=== PATIENT | female | born 1975 | race Caucasian/White ===

== ENCOUNTER 2020-07-11 10:53 | Emergency (ER) | payer OTHER, SELFPAY ==
[2020-07-11 11:27] VITALS: BP 155/70; PULSE 70; RESP 18; TEMP 36.8; O2SAT 97; BMI 30.2
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
[2020-07-11] MEDS: ketorolac 60 mg/2 mL INJ IM (12:45)
[2020-07-11] MEDS: orphenadrine 30 mg/mL Inj 2 mL 60 MG IM (12:45)
[2020-07-11 13:27] VITALS: BP 162/87; O2SAT 98
== END 2020-07-11 13:30 | disposition home or self-care (01) ==
PROVIDERS: Emergency Provider Physician Assistant; PCP Registered Nurse
DX: S13.4XXA Sprain of ligaments of cervical spine, initial encounter (principal); V89.2XXA Person injured in unspecified motor-vehicle accident, traffic, initial encounter
CPT/HCPCS: 12345; 70450; 72125; 73030; 73562; 96372; 99281; 99283; J1885; J2360

== ENCOUNTER 2021-06-10 18:47 | Emergency (ER) | payer SELFPAY ==
--- NOTE | 2021-06-10 18:49 | ECG_ITS ---
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
--- NOTE | 2021-06-10 18:49 | XRR_ITS ---
PROCEDURE INFORMATION: Exam: XR Chest Exam date and time: 06/10/2021 6:49 PM Age: 45 years old Clinical indication: Shortness of breath; Prior surgery; Surgery type: Breast augmentation; Patient HX: SOB, dizziness; Additional info: Cp TECHNIQUE: Imaging protocol: XR of the chest. Views: 1 view. COMPARISON: CT cervical spin wo con* [id number] 07/11/2020 12:49 PM FINDINGS: Lungs: Unremarkable. No consolidation. Pleural spaces: Unremarkable. No pleural effusion. No pneumothorax. Heart/Mediastinum: Unremarkable. No cardiomegaly. Bones/joints: Unremarkable. XR/XR chest 1V portable [id number] IMPRESSION: No acute findings. Radiation Dose CTDIVOL = (mGy): DLP = (mGy-cm)
[2021-06-10 19:07] VITALS: BP 165/87; PULSE 76; RESP 16; TEMP 36.7; O2SAT 100; BMI 25.8
== END 2021-06-10 21:25 | disposition left against medical advice (07) ==
PROVIDERS: PCP Registered Nurse
DX: Z53.21 Procedure and treatment not carried out due to patient leaving prior to being seen by health care provider (principal)
CPT/HCPCS: 71045; 93005

== ENCOUNTER 2021-09-07 11:23 | Observation (INO) | payer OTHER, SELFPAY ==
[2021-09-07] VITALS (12 sets, daily range): BP systolic 106–142; BP diastolic 61–98; PULSE 57–95; RESP 16–22; TEMP 36.9–37.1; O2SAT 98–100; BMI 25.8
--- NOTE | 2021-09-07 11:51 | XRR_ITS ---
PROCEDURE INFORMATION: Exam: XR Chest Exam date and time: 09/07/2021 11:51 AM Age: 45 years old Clinical indication: Pain; Chest pressure; Additional info: Chest pain, shield abd TECHNIQUE: Imaging protocol: XR of the chest. Views: 1 view. COMPARISON: CR XR chest 1V portable [id number] 06/10/2021 7:55 PM FINDINGS: Lungs: Unremarkable. No consolidation. Pleural spaces: Unremarkable. No pleural effusion. No pneumothorax. Heart/Mediastinum: Unremarkable. No cardiomegaly. Bones/joints: Unremarkable. XR/XR chest 1V portable [id number] IMPRESSION: No acute findings.
--- NOTE | 2021-09-07 11:53 | W.ED.CHESTPA ---
HPI - Chest Pain General: Chief Complaint: Chest Pain Stated Complaint: Chest Pains, Weakness, and lightheaded Time Seen by Provider: 09/07/21 11:46 Source: patient Mode of arrival: ambulatory Limitations: no limitations History of Present Illness: HPI narrative: Chest pain intermittently for the past week. She has also had fatigue. Complain of minimal shortness of breath also. Patient states her mother had a heart attack at 38 years of age. Patient denies tobacco use. Only medication that she takes is Xanax as needed for sleep. She denies history of diabetes or hypertension. She has had gastric bypass surgery about 6 years ago. MD complaint: chest pain Pertinent past history: other (Family history of coronary disease) Timing of current episode: episodic and now resolved Prior episodes: Yes Onset: during rest Pain location: substernal and left chest Pain radiation: none Severity: mild Quality: aching Relieving factors: nothing Exacerbating factors: nothing Associated symptoms: Reports dyspnea (mild); Deny abdominal pain, diaphoresis, fever(s), leg edema, nausea, palpitations, sense of impending doom, syncope or vomiting Treatment prior to arrival: none Risk Factors: Coronary artery disease risk factors: family history of CAD before age 50 Review of Systems Const: Reports: fatigue and malaise; Denies: fever(s), chills or diaphoresis Eyes: Denies: change in vision ENMT: Denies: throat pain Card: Reports: chest pain; Denies: palpitations or syncope Resp: Reports: dyspnea (mild) GI: Denies: abdominal pain, nausea or vomiting : Denies: flank pain Musc: Denies: neck pain or back pain Skin/Breast: Denies: rash or pruritus Neuro: Denies: headache(s) or numbness in extremities Psych: Denies: anxiety Dante/Lymph: Denies: enlarged lymph nodes Physical Exam Const: COMMON NORMALS: no acute distress, patient oriented x3, no limitations and well nourished EXAM LIMITATIONS: no altered mental status GENERAL APPEARANCE: cooperative and comfortable HENMT: COMMON NORMALS: normocephalic and atraumatic HEAD & SCALP: normocephalic and atraumatic FACE & SINUS: normal facial exam Eye: COMMON NORMALS: EOMs intact bilaterally Neck/C-Spine: COMMON NORMALS: full ROM, no lymphadenopathy, supple, no meningeal signs and no JVD GENERAL: Yes normal visual inspection Lymph: LYMPHATIC: no lymphadenopathy noted Chest: COMMONS NORMALS: normal inspection of the chest and normal palpation of entire chest wall CHEST: No Ecchymosis present and No rash Resp: COMMON NORMALS: normal respiratory effort, No retractions, No use of accessory muscles and clear to auscultation bilaterally EFFORT & INSPECTION: No respiratory distress AUSCULTATION: clear to auscultation bilaterally Cardio: COMMON NORMALS: no JVD, regular rate, regular rhythm and Peripheral pulses 2+ throughout JUGULAR VENOUS DISTENTION: no JVD RATE: regular rate RHYTHM: regular rhythm PERIPHERAL PULSES: Peripheral pulses 2+ throughout GI: COMMON NORMALS: Normal to inspection, nondistended, normoactive bowel sounds present, Soft to palpation, non-tender, No hepatosplenomegaly present, no masses and no bruits PALPATION: Yes Soft to palpation and Yes No hepatosplenomegaly present : COMMON NORMALS: Yes no CVA tenderness BLADDER/KIDNEY EXAM: Yes no CVA tenderness Back/Pelvis: COMMON NORMALS: no CVA tenderness Extremity: COMMON NORMALS: normal to inspection, full ROM and capillary refill normal Neuro: COMMON NORMALS: patient oriented x3, CN's II-XII intact bilaterally, no focal motor deficits and no sensory deficits noted MENINGEAL SIGNS: Yes no meningeal signs Psych: COMMON NORMALS: mental status grossly normal and Normal thought process present THOUGHT PROCESS: Normal thought process present Skin: COMMON NORMALS: no rashes or lesions noted and no wounds GENERAL SKIN EXAM: no rashes or lesions noted Course Vital Signs: Vital signs: Vital Signs Temperature 98.4 F 09/07/21 11:40 Pulse Rate 68 09/07/21 13:21 Respiratory Rate 22 H 09/07/21 13:21 Blood Pressure 136/70 09/07/21 13:21 Pulse Oximetry 100 09/07/21 13:21 MDM - Chest Pain MDM Narrative: Medical decision making narrative: 1325: d/w dr. dasilva cardiology. will obs to med telem. order lovenox. Patient has taken Lovenox in the past without any problems. Lab Data: Attestation: I reviewed the patient's lab results. Labs: Lab Results 09/07/21 09/07/21 09/07/21 12:15 12:15 12:15 WBC 5.1 10^3/uL 10^3/ uL (4.0-10.0) RBC 4.08 10^6/uL L 10 ^6/uL (4.1-5.3) Hgb 13.2 g/dL g/dL (11.5-15.3) Hct 40.7 % % (37.0-47.0) MCV 99.8 fl H fl (81-99) MCH 32.4 pg pg (28.0-34.0) MCHC 32.4 g/dL g/dL (30.0-36.0) RDW 12.3 % % (12.1-15.1) Plt Count 407 10^3/cmm H 10 ^3/cmm (130-400) MPV 9.3 fL fL (7.4-10.4) Neut % (Auto) 52.7 % % Lymph % (Auto) 24.5 % % Beaver % (Auto) 10.1 % % Eos % (Auto) 11.1 % % Baso % (Auto) 1.2 % % Neut # (Auto) 2.71 10^3/uL 10^3 /uL (1.8-7.7) Lymph # (Auto) 1.3 10^3/uL 10^3/ uL (0.8-4.8) Beaver # (Auto) 0.5 10^3/uL 10^3/ uL (0.2-0.9) Eos # (Auto) 0.6 10^3/uL 10^3/ uL (0.0-0.8) Baso # (Auto) 0.1 10^3/uL 10^3/ uL (0.0-0.1) Nucleated RBC % (a uto) 0 % % Nucleated RBCs # 0.0 /100WBC /100W BC D-Dimer Sodium 139 mmol/L mmol/L (136-145) Potassium 3.8 mmol/L mmol/L (3.5-5.1) Chloride 106 mmol/L mmol/L (98-107) Carbon Dioxide 19 mmol/L L mmol/ L (22-29) Anion Gap 17.8 (5-19) BUN 12 mg/dL mg/dL (6-20) Creatinine 0.6 mg/dL mg/dL (0.5-0.9) GFR Calculation 109.1 mL/min mL/m in (90-130) Glucose 78 mg/dL mg/dL (65-115) Calculated Osmolal ity 287 mOsm/kg mOsm/ kg (285-295) Calcium 8.8 mg/dL mg/dL (8.5-10.5) Troponin T Baselin e 6 ng/L ng/L (0-10) TSH 0.70 uIU/mL uIU/m L (0.27-4.20) 09/07/21 12:20 WBC RBC Hgb Hct MCV MCH MCHC RDW Plt Count MPV Neut % (Auto) Lymph % (Auto) Beaver % (Auto) Eos % (Auto) Baso % (Auto) Neut # (Auto) Lymph # (Auto) [place] # (Auto) Eos # (Auto) Baso # (Auto) Nucleated RBC % (a uto) Nucleated RBCs # D-Dimer 0.45 ug/mIFEU ug/ mIFEU (0-0.59) Sodium Potassium Chloride Carbon Dioxide Anion Gap BUN Creatinine GFR Calculation Glucose Calculated Osmolal ity Calcium Troponin T Baselin e TSH Imaging Data^: CXR: Attestation: I personally reviewed and interpreted this imaging study as follows: My impression: Portable chest x-ray shows nothing acute. EKG Data^: EKG 1: Attestation: I personally reviewed and interpreted this EKG as follows: EKG interpretation date: 09/07/21 EKG interpretation time: 11:55 Prior EKG tracings: available for review Ischemic changes: non-specific ST-T wave changes Interpretation: Normal sinus rhythm with nonspecific ST-T changes throughout. Right atrial disease. Nonspecific ST changes are changed from normal EKG on June 10, 2021. Discharge Plan Discharge Patient Disposition: Placed in Observation Clinical Impression: Chest pain Qualifiers: Chest pain type: unspecified Qualified Code(s): R07.9 - Chest pain, unspecified Coding Level of Care Code ED [place] for [facility] Fwd Exam Comprehensive
[2021-09-07 12:24] LABS: Basophils # 0.1 10^3/uL (0.0-0.1); Basophils % 1.2 %; Eosinophils # 0.6 10^3/uL (0.0-0.8); Eosinophils % 11.1 %; Hematocrit 40.7 % (37.0-47.0); Hemoglobin 13.2 g/dL (11.5-15.3); Lymphocytes # 1.3 10^3/uL (0.8-4.8); Lymphocytes % 24.5 %; Mean Corpuscular HGB Conc 32.4 g/dL (30.0-36.0); Mean Corpuscular Hemoglobin 32.4 pg (28.0-34.0); Mean Corpuscular Volume 99.8 fl (81-99); Mean Platelet Volume 9.3 fL (7.4-10.4); Monocytes # 0.5 10^3/uL (0.2-0.9); Monocytes % 10.1 %; Neutrophils # 2.71 10^3/uL (1.8-7.7); Neutrophils % 52.7 %; Nucleated Red Blood Cells % 0 %; Platelet Count 407 10^3/cmm (130-400); Red Blood Count 4.08 10^6/uL (4.1-5.3); Red Cell Distribution Width 12.3 % (12.1-15.1); White Blood Count 5.1 10^3/uL (4.0-10.0)
[2021-09-07 12:43] LABS: Troponin(5th) Baseline 6 ng/L (0-10)
[2021-09-07 12:45] LABS: D Dimer 0.45 ug/mIFEU (0-0.59)
[2021-09-07 12:51] LABS: Anion Gap 17.8 (5-19); Blood Urea Nitrogen 12 mg/dL (6-20); Calcium 8.8 mg/dL (8.5-10.5); Carbon Dioxide 19 mmol/L (22-29); Chloride 106 mmol/L (98-107); Glomerular Filtration Rate 109.1 mL/min (90-130); Glucose 78 mg/dL (65-115); Osmolality Calculated 287 mOsm/kg (285-295); Potassium 3.8 mmol/L (3.5-5.1); Sodium 139 mmol/L (136-145)
[2021-09-07] MEDS: enoxaparin 80 mg/0.8 mL Syringe 70 MG SUBCUT (13:36)
[2021-09-07] MEDS: ondansetron 2 mg/ML SDV 2 mL 4 MG IVP (13:41)
[2021-09-07] MEDS: morphine 4 mg/mL SDV 1 mL 2 MG IVP ×2 (13:41→19:13)
[2021-09-07 14:42] LABS: Troponin 5 2HR 10.66 ng/L (0-10); Troponin 5 2HR Delta 4.66 ABS# (0-10)
[2021-09-07] MEDS: isosorbide mononitrate 20 mg Tablet PO (17:27)
[2021-09-07 18:15] LABS: Troponin 5 6HR 9.13 ng/L (0-10); Troponin 5 6HR Delta 3.13 ng/L (0-12)
--- NOTE | 2021-09-07 18:46 | PM.HP ---
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 According to the patient it has awakened her up from the sleep as well. Today it felt like somebody sitting on her chest and sometimes it is sharp and shooting. She decided to come to the ER. Upon arrival she had EKG done which showed ST changes I do not see it here recorded but was presented to me in the ER. According to patient she is feeling little bit better but still has residual chest pressure. She will be admitted to rule out for acute coronary syndrome. Further plan will advise then. Review of Systems Const: Reports: fatigue and malaise; Denies: fever(s), chills or diaphoresis Eyes: Denies: change in vision ENMT: Denies: throat pain Card: Reports: chest pain; Denies: palpitations or syncope Resp: Reports: dyspnea (mild) GI: Denies: abdominal pain, nausea or vomiting : Denies: flank pain Musc: Denies: neck pain or back pain Skin/Breast: Denies: rash or pruritus Neuro: Denies: headache(s) or numbness in extremities Psych: Denies: anxiety Dante/Lymph: Denies: enlarged lymph nodes Medications/Allergies Home Medications Medication Instructions Recorded Confirmed Last Taken Type alprazolam 0.5 mg PO BID PRN 07/11/20 09/07/21 07/11/20 History cetirizine [Zyrtec] 10 mg PO DAILY PRN 07/11/20 09/07/21 Unknown History fexofenadine 180 mg PO DAILY PRN 07/11/20 09/07/21 07/11/20 History montelukast 10 mg PO QPM PRN 07/11/20 09/07/21 07/10/20 History pantoprazole 40 mg PO DAILY #30 tab 09/09/21 Unknown Rx Allergies Allergy/AdvReac Type Severity Reaction Status Date / Time Beef Containing Products Allergy ALGY-Swell Verified 09/07/21 11:43 Lip/Tongue/Throat pork derived (porcine) Allergy ALGY-Swell Verified 09/07/21 11:43 Lip/Tongue/Throat PFSH Acute PFSH: Surgical History (Updated 09/10/21 @ 00:00 by ) Gastric bypass status for obesity Vitals/I&O/Wt Last Vital Signs Temp 98.4 F 09/07/21 11:40 Pulse 94 09/07/21 16:58 Resp 18 09/07/21 16:27 BP 130/82 09/07/21 16:58 Pulse Ox 99 09/07/21 16:58 09/07/21 09/07/21 09/07/21 06:59 14:59 22:59 Intake Total 360 / 360 Balance 360 / 360 Weight last 48 hrs Weight 160 lb Weight 160 lb Physical Exam Narrative: EXAM NARRATIVE: GENERAL: Patient is alert, awake and oriented x3. NECK: No jugular vein distension. HEENT: No cyanosis. No icterus. No pallor. HEART: Regular S1 and S2. No murmur, rub or gallop. LUNGS: Clear to auscultate bilaterally. ABDOMEN: Soft, nontender and nondistended. Positive bowel sounds. No guarding, rebound or tenderness. CENTRAL NERVOUS SYSTEM: Grossly nonfocal. EXTREMITIES: Lower extremities without edema bilaterally. Data : 09/08/21 04:31 09/08/21 04:31 A&P Assessment and plan (1) Chest pain: We will rule out acute coronary syndrome she will be admitted on tele floor. I will give her Lovenox start her on aspirin statin and nitroglycerin. I will also start her on beta-cj. Further plan be advised as per progress of the patient Status: Resolved Qualifiers: Chest pain type: unspecified Qualified Code(s): R07.9 - Chest pain, unspecified (2) Gastric bypass status for obesity: History of gastric bypass surgery. 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
[2021-09-07] MEDS: metoprolol succinate ER (24 HR) 25 mg Tablet 12.5 MG PO (19:13)
[2021-09-07] MEDS: atorvastatin 40 mg Tablet PO (19:14)
[2021-09-07] MEDS: pantoprazole DR 40 mg Tablet PO (19:14)
[2021-09-07] MEDS: ketorolac 30 mg/mL INJ 15 MG IVP (20:56)
[2021-09-07] MEDS: HYDROcodone-acetaminophen 5-325 mg Tablet 1 TAB PO (21:44)
[2021-09-08] VITALS (12 sets, daily range): BP systolic 105–133; BP diastolic 62–78; PULSE 52–63; RESP 16–20; TEMP 36.5–37; O2SAT 95–99
[2021-09-08] MEDS: morphine 4 mg/mL SDV 1 mL 2 MG IVP ×4 (03:28→21:54)
[2021-09-08] MEDS: HYDROcodone-acetaminophen 5-325 mg Tablet 1 TAB PO ×4 (03:55→21:51)
[2021-09-08 05:16] LABS: Basophils % 0.5 %; Eosinophils # 0.6 10^3/uL (0.0-0.8); Eosinophils % 11.2 %; Hematocrit 38.6 % (37.0-47.0); Hemoglobin 12.2 g/dL (11.5-15.3); Lymphocytes # 1.9 10^3/uL (0.8-4.8); Lymphocytes % 33.5 %; Mean Corpuscular HGB Conc 31.6 g/dL (30.0-36.0); Mean Corpuscular Hemoglobin 32.4 pg (28.0-34.0); Mean Corpuscular Volume 102.4 fl (81-99); Mean Platelet Volume 9.4 fL (7.4-10.4); Monocytes # 0.6 10^3/uL (0.2-0.9); Monocytes % 10.5 %; Neutrophils # 2.42 10^3/uL (1.8-7.7); Neutrophils % 43.9 %; Nucleated Red Blood Cells % 0 %; Platelet Count 342 10^3/cmm (130-400); Red Blood Count 3.77 10^6/uL (4.1-5.3); Red Cell Distribution Width 12.5 % (12.1-15.1); White Blood Count 5.5 10^3/uL (4.0-10.0)
[2021-09-08 05:38] LABS: Anion Gap 17.5 (5-19); Blood Urea Nitrogen 13 mg/dL (6-20); Calcium 8.8 mg/dL (8.5-10.5); Carbon Dioxide 21 mmol/L (22-29); Chloride 105 mmol/L (98-107); Creatinine Clr Calc Pharmacy 92.4843; Glomerular Filtration Rate 78.3 mL/min (90-130); Glucose 99 mg/dL (65-115); Osmolality Calculated 288 mOsm/kg (285-295); Potassium 4.5 mmol/L (3.5-5.1); Sodium 139 mmol/L (136-145)
--- NOTE | 2021-09-08 06:24 | PC.NURSE ---
SHIFT SUMMARY Has not really slept tonight. Has been on computer or phone much of the shift. Has continued to voice some chest pain. Says is in center of chest and into back but says is not any different than what she has been dealing with for some time now. No SOB, diaphoresis or radiation into neck or arms. Has also had a headache all night. Has received IV Morphine, po Hydrocodone and a 1 time dose of IV Toradol. Is very pleasant and talkative. Is anxious to find out what is causing her chest pain. equipment monitor phototypesetting showing SR-SB with HR in 50's-60's range
[2021-09-08] MEDS: aspirin 325 mg Tablet PO (08:38)
[2021-09-08] MEDS: pantoprazole DR 40 mg Tablet PO (08:38)
[2021-09-08] MEDS: metoprolol succinate ER (24 HR) 25 mg Tablet 12.5 MG PO (08:38)
--- NOTE | 2021-09-08 11:03 | USCV_ITS ---
Thao Refugio Age: 45 Gender: F : 1975 Exam Date: 09/08/2021 12:32 Ordering Phys: Lynnette Nieves MD ([email or web address]) Technologist: Kandi Sneed [place] [facility] [place]: Chest pain BP: 114 / 68 HR: 58 Rhythm: Sinus Technical Quality: Fair MEASUREMENTS (Male / Female) Normal Values 2D ECHO LV Diastolic Diameter PLAX 3.7 cm 4.2 - 5.9 / 3.9 - 5.3 cm LV Systolic Diameter PLAX 2.1 cm IVS Diastolic Thickness 1.1 cm 0.6 - 1.0 / 0.6 - 0.9 cm IVS Systolic Thickness 1.7 cm LVPW Diastolic Thickness 0.9 cm 0.6 - 1.0 / 0.6 - 0.9 cm LVPW Systolic Thickness 1.5 cm RV Chamber Size 2.2 cm LVOT Diameter 1.8 cm LV Ejection Fraction 2D Teich 75.7 % LV Ejection Fraction MOD 2C 63.0 % LV Ejection Fraction 2C AL 64.2 % LA Diameter 2.3 cm LA Width 2.6 cm LA Height 3.4 cm RA Width 2.9 cm RA Height 3.5 cm Aorta at Sinotubular Diameter 2.0 cm M-MODE Aortic Annulus Diameter 2.3 cm LA Ao Ratio MM 1.3 MV E Point Septal Separation 0.3 cm DOPPLER AV Peak Velocity 190.0 cm/s LVOT Peak Velocity 120.0 cm/s AV Area Cont Eq vti 1.8 cm squared AV Area Cont Eq pk 1.6 cm squared MV Area PHT 4.3 cm squared Mitral E to A Ratio 1.2 MV E' Velocity 57.0 cm/s Mitral E to MV E' Ratio 7.5 Mitral E to LV E' Lateral Ratio 6.9 Mitral E to LV E' Septal Ratio 8.3 TR Peak Velocity 261.3 cm/s TR Peak Gradient 27.3 mmHg TV Peak E Velocity 73.0 cm/s Right Atrial Pressure 3.0 mmHg Pulmonary Artery Systolic Pressu 30.3 mmHg RV Acceleration Time 0.2 s RV Ejection Time 0.3 s RV AcT/ET 0.5 FINDINGS Left Ventricle Normal left ventricular cavity size. Normal left ventricular systolic function. No regional wall motion abnormalities. Left ventricular ejection fraction is estimated at 65 %. Normal diastolic function. Right Ventricle Normal right ventricular size. Moderate pulmonary hypertension, RVSP 30.3 mmHg plus RA pressure Right Atrium The right atrium is normal in size. Left Atrium The left atrium is normal in size. Mitral Valve Mildly thickened mitral valve. No mitral valve stenosis. Mild mitral valve regurgitation. Aortic Valve Moderate aortic valve calcification. No aortic valve stenosis. Trace aortic valve regurgitation. Tricuspid Valve Moderate tricuspid valve regurgitation. Pulmonic Valve Structurally normal pulmonic valve without significant stenosis. There is no pulmonic regurgitation. Pericardium Normal pericardium without effusion. Aorta Normal ascending aorta dimension. CONCLUSIONS 1-Normal left ventricular cavity size. Normal left ventricular systolic function. No regional wall motion abnormalities. Left ventricular ejection fraction is estimated at 65 %. Normal diastolic function. 2-Normal right ventricular size. Moderate pulmonary hypertension, RVSP 30.3 mmHg. 3-Moderate aortic valve calcification. No aortic valve stenosis. Trace aortic valve regurgitation. 4-Mildly thickened mitral valve. No mitral valve stenosis. Mild mitral valve regurgitation. 5-Moderate tricuspid valve regurgitation. 6-There is no pericardial effusion. 7-Right atrial pressure is around 10 mm of mercury. 8-There are no prior echocardiogram studies to compare. Lynnette Nieves MD (Electronically Signed) Final Date: 08 September 2021 16:12 S
--- NOTE | 2021-09-08 11:04 | PC.NURSE ---
patient states she was supposed to have an echo today. display card writer clarified with Dr Nieves and put order in for echo.
--- NOTE | 2021-09-08 13:43 | PM.PN ---
Subjective Subjective: Interval history: Patient has been ruled out for acute coronary syndrome. She had headaches after nitroglycerin last night. Vitals/I&O/Wt Last Vital Signs Temp 97.9 F 09/08/21 11:53 Pulse 54 L 09/08/21 11:53 Resp 16 09/08/21 11:53 BP 127/78 09/08/21 11:53 Pulse Ox 98 09/08/21 11:53 09/07/21 09/08/21 09/08/21 22:59 06:59 14:59 Intake Total 600 / 600 410 / 1010 360 / 360 Balance 600 / 600 410 / 1010 360 / 360 Weight last 48 hrs Weight 160 lb Weight 160 lb Physical Exam Narrative: EXAM NARRATIVE: GENERAL: Patient is alert, awake and oriented x3. NECK: No jugular vein distension. HEENT: No cyanosis. No icterus. No pallor. HEART: Regular S1 and S2. No murmur, rub or gallop. LUNGS: Clear to auscultate bilaterally. ABDOMEN: Soft, nontender and nondistended. Positive bowel sounds. No guarding, rebound or tenderness. CENTRAL NERVOUS SYSTEM: Grossly nonfocal. EXTREMITIES: Lower extremities without edema bilaterally. Data : 09/08/21 04:31 09/08/21 04:31 A&P Assessment and plan (1) Chest pain: Patient has risk factor for coronary artery disease including history of obesity, strong family history of premature coronary artery disease. Her chest pain going on for the last month off and on basis need to be further investigated with stress test. Over the weekend we do not have a stress test available I will schedule her for treadmill nuclear stress test for tomorrow. Echocardiogram will be obtained today. Status: Acute Qualifiers: Chest pain type: unspecified Qualified Code(s): R07.9 - Chest pain, unspecified (2) Gastric bypass status for obesity: History of gastric bypass surgery. Status: Acute Attestations Medical Necessity Statement*: Patient require continuation hospitalization for above defined care patient will cross more than 2 midnights we will admit her as an inpatient Coding Level of Care Code Established Pt Acute Blender Conveyor Operator for Wilian Fwbelem Patient Type Established Medical Decision Making Moderate Complexity Diagnoses Chest pain R07.9 Chest pain type: unspecified Gastric bypass status for obesity Z98.84
[2021-09-08 13:49] LABS: Troponin T (5th) Once 6 ng/L (0-10)
--- NOTE | 2021-09-08 14:20 | PC.NURSE ---
Addendum entered by Dhara Sandhu RN 09/08/21 14:21: removed all caffeine from patient and let her know she will be npo tonight for stress test tomorrow and can not have caffeine for 24 hours prior to stress test. Original Note: removed all cafiene
[2021-09-08] MEDS: atorvastatin 40 mg Tablet PO (20:25)
[2021-09-09] VITALS (11 sets, daily range): BP systolic 99–132; BP diastolic 50–82; PULSE 50–75; RESP 16–18; TEMP 36.5–36.7; O2SAT 96–100
[2021-09-09] MEDS: HYDROcodone-acetaminophen 5-325 mg Tablet 1 TAB PO ×2 (04:19→11:27)
[2021-09-09] MEDS: morphine 4 mg/mL SDV 1 mL 2 MG IVP ×2 (04:19→13:10)
--- NOTE | 2021-09-09 05:44 | PC.NURSE ---
SHIFT SUMMARY Has slept better tonight. Dr Nieves was called last evening per pt request to get her Xanax ordered that she normally takes. Says awake often but has gotten more sleep than last night for sure. Has received IV Morpine and po Hydrocodone each X2 for c/o headache and chest pain. Has not rated either as high tonight. Says the chest pain continues to be in center of her chest and some into her back. Telemetry has shown SR/SB with HR in 50's-60's range. Has been NPO since midnight except for water for stress test today.
--- NOTE | 2021-09-09 06:03 | ECG_ITS ---
[facility] Test Date: 2021-09-09 Pat Name: Jens Osuna Department: Room: 254 Gender: Female Media Operator: Meg Bennett : 1975 Requested By: Lynnette Nieves Order Number: [id number] Reading MD: LYNNETTE NIEVES Interpretive Statements NAME OF STUDY: LEXISCAN SESTAMIBI STRESS TEST INDICATION: Chest Pain, NOTE: Please note that this is the electrocardiogram portion of the Lexiscan/Sestamibi stress test. The perfusion scan will be documented separately. DATA: Baseline heart rate was 55 beats per minute. Baseline blood pressure was 118/75 millimeters of mercury. Target heart rate was 177. Maximum heart rate achieved was 103. which was 58 % of the predicted target heart rate. Maximum blood pressure was 131/76 millimeters of mercury. The reason for ending the test was completion of the protocol. The patient did not experience any symptoms. ELECTROCARDIOGRAM: BASELINE: Sinus rhythm. Normal axis. Otherwise, no ST-T changes suggestive of ischemia noted. No arrhythmia noted. EXERCISE: After Lexiscan injection, no ST-T changes suggestive of ischemic noted. No arrhythmia noted. CONCLUSION: Please note due to baseline abnormality of the EKG specificity and sensitivity of the EKG portion of LexiScan MIBI stress test will be low 1. EKG not suggestive of ischemia 2. Lexiscan injection unremarkable. 3. Perfusion scan will be documented separately. Electronically Signed On 09-09-2021 15:40:52 MAINTENANCE TECHNICIAN 3RD SHIFT by LYNNETTE NIEVES [id number]
--- NOTE | 2021-09-09 06:05 | NMCV_ITS ---
NM fabi perf SPECT r/s* [id number] Jens Osuna Age: 45 Gender: F : 1975 Exam Date: 09/09/2021 09:05 Ordering Phys: Lynnette Nieves MD ([email or web address]) Technologist: RENNY Morales Exam Location: [facility] Indications: CHEST PAINS, WEAKNESS, LIGHTHEADED STRESS TEST [facility] IMAGE PROTOCOL Rest/Stress 1 Lexiscan Day Radiopharmaceutical Dose (mCi) Administration Site Administered by Rest: Tc-99m 11.0 IV RENNY Clifton Sestamibi Stress:Tc-99m 32.8 IV RENNY Clifton Sestamibi Rest: 09-Sep-2021 60 Discovery 630 Stress: 09-Sep-2021 30 Discovery 630 0.4mg Lexiscan. Images obtained in supine and prone position. SPECT RESULTS Technical Quality: Excellent Raw Data Analysis: Normal Image Corrections: No attenuation or motion correction applied Summed Stress Score: 0 Summed Rest Score: 1 Summed Difference Score: 0 PERFUSION FINDINGS SPECT images demonstrate homogeneous tracer distribution throughout the myocardium. FUNCTIONAL RESULTS (calculated via Gated SPECT) Stress Image LV EF (%): 75 Stress EDV (mL):83 TID: 0.81 Stress ESV (mL):21 Rest Image LV EF (%): 75 FUNCTIONAL FINDINGS: There is normal left ventricular systolic function. IMPRESSIONS Myocardial perfusion imaging is normal, left ventricle ejection fraction is hyperdynamic. EKG segment will be documented separately . Lynnette Nieves MD (Electronically Signed) Final Date: 09 September 2021 15:38 S
--- NOTE | 2021-09-09 07:28 | PC.NURSE ---
pt received a bb on 09/08/21. per dr dasilva test changed to morgan
[2021-09-09] MEDS: ondansetron 2 mg/ML SDV 2 mL 4 MG IVP ×2 (10:01→14:37)
[2021-09-09] MEDS: regadenoson 0.4 Mg/5 ml Syringe IVP (10:02)
[2021-09-09] MEDS: aspirin 325 mg Tablet PO (11:27)
[2021-09-09] MEDS: metoprolol succinate ER (24 HR) 25 mg Tablet 12.5 MG PO (11:27)
[2021-09-09] MEDS: pantoprazole DR 40 mg Tablet PO (11:27)
--- NOTE | 2021-09-09 15:41 | PM.DCS ---
Discharge Providers Date of Admission: 09/07/21 13:28 Date of Discharge: September 09, 2021 Attending Provider at Admission: Lynnette Nieves MD Attending Provider at Discharge: Lynnette Nieves MD Primary Care Provider: RICK Cruz Diagnoses at Discharge Discharge Diagnosis (1) Chest pain: Status: Resolved Qualifiers: Chest pain type: unspecified Qualified Code(s): R07.9 - Chest pain, unspecified (2) Gastric bypass status for obesity: Reason for Visit Reason for Visit: Chest Pains, Weakness, and lightheaded Hospital Course Hospital Course 45-year-old female past medical history significant for strong family history of premature coronary artery disease for worsening of shortness of breath chest pain was admitted she was ruled out for acute coronary syndrome. Stress test was performed next morning which showed no significant ischemia. It was thought she may have GERD advised lifestyle changes and started on Protonix. She is being discharged home. She will follow-up with primary care physician and us as needed Physical Exam Narrative: EXAM NARRATIVE: GENERAL: Patient is alert, awake and oriented x3. NECK: No jugular vein distension. HEENT: No cyanosis. No icterus. No pallor. HEART: Regular S1 and S2. No murmur, rub or gallop. LUNGS: Clear to auscultate bilaterally. ABDOMEN: Soft, nontender and nondistended. Positive bowel sounds. No guarding, rebound or tenderness. CENTRAL NERVOUS SYSTEM: Grossly nonfocal. EXTREMITIES: Lower extremities without edema bilaterally. Discharge Data Data Completed and Pending: Completed Studies During Hospitalization Category Date Time Status Cardiac Stress Te st MIBI [Sestamibi Stress Test Reque st Exams 09/09/21 06:03 Draft ] Routine XR chest 1V jarvis ble [id number] Stat Exams 09/07/21 11:51 Completed NM fabi perf SPECT r/s* [id number] Routin e Nuc Med 09/09/21 06:05 Completed US echo complete [CV. echo complete * [id number]] Routine Ultrasound 09/08/21 11:03 Completed Pending at discharge Category Date Time Status Cardiac Stress Te st MIBI [Sestamibi Stress Test Reque st Exams 09/09/21 06:03 Ordered ] Routine Cardiac Stress Te st Request Routine Exams 09/08/21 13:51 Stop Req Vitals: Last Vital Signs Temp 98.0 F 09/09/21 04:00 Pulse 50 L 09/09/21 15:11 Resp 18 09/09/21 15:11 BP 118/66 09/09/21 15:11 Pulse Ox 99 09/09/21 15:11 Discharge Plan Discharge Patient Disposition: Home Condition: Stable Prescriptions: New pantoprazole 40 mg Tablet,Delayed Release (Dr/Ec) 40 mg PO DAILY Qty: 30 RF: 3 Continued cetirizine [Zyrtec] 10 mg Tablet 10 mg PO DAILY PRN (Reason: Allergy Symptoms) RF: 0 fexofenadine 180 mg Tablet 180 mg PO DAILY PRN (Reason: Allergy Symptoms) RF: 0 alprazolam 0.5 mg tablet 0.5 mg PO BID PRN (Reason: Anxiety) RF: 0 montelukast 10 mg tablet 10 mg PO QPM PRN (Reason: Allergy Symptoms) RF: 0 Discharge Orders: Discharge Order (Routine); Ordered 09/09/21 Ordered By: Lynnette Nieves Referrals: Suad Sarabia FNP [Primary Care Provider] - 09/12/21 10:20 am Discharge Diet: Regular Patient Instructions: Pantoprazole (By mouth), Chest Pain (GEN), Opioid Safety Activity Restrictions/Additional Instructions: Follow-up with primary care physician. Discharge Attestations Time Spent in Discharge Care*: less than 30 min Specific Discharge Activities: educating patient Quality Metrics Clinical Quality Measures During this hospital stay, did patient experience: None Coding Level of Care Code New Pt Acute Chg FW DC note Patient Type New History Detailed Exam Detailed Medical Decision Making Moderate Complexity Diagnoses Chest pain R07.9 Chest pain type: unspecified Gastric bypass status for obesity Z98.84
--- NOTE | 2021-09-09 17:28 | PC.NURSE ---
discharge instructions given to patient and patient verbalized understanding of instructions. patient taken to private vehicle via wheelchair by staff.
== END 2021-09-09 17:29 | disposition home or self-care (01) ==
LOC: ER 15:06 → MEDSURG 16:39
PROVIDERS: Admitting Provider Internal Medicine Cardiovascular Disease; Emergency Provider Family Medicine; PCP Registered Nurse; Visit Provider Internal Medicine Cardiovascular Disease
DX: R07.9 Chest pain, unspecified (principal); Z98.84 Bariatric surgery status; Z82.49 Family history of ischemic heart disease and other diseases of the circulatory system
CPT/HCPCS: 36415; 71045; 78452; 80048; 84443; 84484; 85025; 85378; 93017; 93306; 96372; 96374; 99285; A9500; G0378; J1650; J1885; J2270; J2405; J2785

== ENCOUNTER 2022-04-14 11:19 | Emergency (ER) | payer OTHER, SELFPAY ==
[2022-04-14 11:25] VITALS: BP 143/76; PULSE 69; RESP 21; TEMP 36.6; O2SAT 100; BMI 28.2
--- NOTE | 2022-04-14 12:47 | ED_ITS ---
HPI - Chest Pain General: Chief Complaint: Chest Pain Stated Complaint: Chest pain, Left side numbness and back pain Time Seen by Provider: 04/14/22 12:47 History of Present Illness: Ms. Osuna is a 46-year-old lady with positive family history for early cardiac who presents to the ER for chest pain and left arm paresthesias. Onset of chest pain was approximately 2 weeks ago w ithout known specific factors. She notes pressure in her chest that is occasionally pleuritic and sharp in nature and intermittent. Moderate in intensity. She does endorse associated paresthesias of the left arm and back pain for the past couple days. Overall course of symptoms has persisted. Does have baseline mild headache. This is frontal in location and similar to prior headaches. No other specific changes in health, exacerbating, or alleviating factors identified. Onset (ago): week(s) Timing of current episode: episodic Prior episodes: Yes Onset: during rest Pain location: substernal and left chest Severity: moderate Associated symptoms: Reports other Review of Systems General: Reports: 10 or more systems reviewed and unremarkable except in HPI and below PFSH ED PFSH: Medical History Psychiatric care Surgical History Gastric bypass status for obesity Physical Exam Const: COMMON NORMALS: patient oriented x3 and alert GENERAL APPEARANCE: cooperative and well developed HENMT: COMMON NORMALS: normocephalic and atraumatic HEAD & SCALP: normocephalic and atraumatic Eye: COMMON NORMALS: conjunctivae normal CONJUNCTIVA: Yes conjunctivae normal SCLERA: sclerae normal Neck/C-Spine: COMMON NORMALS: supple GENERAL: Yes trachea midline Resp: COMMON NORMALS: normal respiratory effort EFFORT & INSPECTION: Yes able to speak in complete sentences Cardio: COMMON NORMALS: regular rate and regular rhythm RATE: regular rate RHYTHM: regular rhythm GI: COMMON NORMALS: Soft to palpation PALPATION: Yes Soft to palpation and No Tenderness to palpation present (GI) Extremity: GENERAL: Yes normal exam except as noted and No edema Neuro: COMMON NORMALS: patient oriented x3, CN's II-XII intact bilaterally, moves all extremities, no focal motor deficits and no sensory deficits noted (Subjective mildly reduced sensation left upper extremity) SENSORIUM/ORIENTATION: Yes alert and No Orientation impaired Psych: COMMON NORMALS: mental status grossly normal and Normal thought process present THOUGHT PROCESS: Normal thought process present Course ED course: - Patient was seen and evaluated by me at bedside - Patient placed on cardiac monitors, IV access obtained - Initial evaluation notable for exam as above. - Labs and xrays personally interpreted by me. EKG notable for sinus rhythm with nonspecific ST segment abnormalities, no STEMI. -Aspirin and analgesia given - Labs notable for no leukocytosis, normal hemoglobin. No acute metabolic abnormalities to explain symptoms. Initial and delta troponin negative. - Imaging notable for no lobar consolidation or pneumothorax. Negative head CT - Upon serial reexamination after treatment the patient was improved - Based on patient history, evaluation, and testing as interpreted the most likely cause of the patient's condition is chest pain and paresthesias of uncertain etiology. - The results of ED evaluation were discussed with the patient including prescriptions and/or symptomatic cares (if applicable) including appropriate and responsible use, followup plan, and return precautions. The patient verbalized understanding and felt safe for discharge. - Patient discharged in satisfactory condition. Note: Click bubbles or prepopulated lowery in note writing are used for assistance with data collection and billing and are inherently more limited than narrative and other text portions of this note. Please use narrative for additional clinical history and defer to narrative/free test for any case of contradictory information. If information appears in only free text or click bubble it should be considered present or absent as reported. Please contact note data analyst report writer for clarifications of clinical information or contradictory information. MDM is a brief summary, contradictory or erroneous seeming information should be clarified and full note should be reviewed. Vital Signs: Vital signs: Vital Signs Temperature 97.9 F 04/14/22 11:25 Pulse Rate 66 04/14/22 17:45 Respiratory Rate 18 04/14/22 17:45 Blood Pressure 137/71 04/14/22 17:45 Pulse Oximetry 100 04/14/22 17:45 Oxygen Delivery Il thod 04/14/22 17:40 MDM - Chest Pain Medical Decision Making 46-year-old lady presenting with arm paresthesias and chest pain. Exact cause of symptoms not identified on ED evaluation. Satisfactory for outpatient management. Medical Records I reviewed the patient's medical records. Lab Data I reviewed the patient's lab results. : 04/14/22 13:55 04/14/22 13:55 Radiology Impressions Chest X-Ray 04/14/22 13:04 IMPRESSION: No acute findings. Head CT 04/14/22 14:30 IMPRESSION: No acute intracranial abnormality. Laboratory Results WBC 4.2 10^3/uL (4.0-10.0) 04/14/22 13:55 RBC 3.74 10^6/uL (4.1-5.3) L 04/14/22 13:55 Hgb 11.8 g/dL (11.5-15.3) 04/14/22 13:55 Hct 36.0 % (37.0-47.0) L 04/14/22 13:55 MCV 96.3 fl (81-99) 04/14/22 13:55 MCH 31.6 pg (28.0-34.0) 04/14/22 13:55 MCHC 32.8 g/dL (30.0-36.0) 04/14/22 13:55 RDW 12.4 % (12.1-15.1) 04/14/22 13:55 Plt Count 345 10^3/cmm (130-400) 04/14/22 13:55 MPV 9.2 fL (7.4-10.4) 04/14/22 13:55 Neut % (Auto) 58.7 % 04/14/22 13:55 Lymph % (Auto) 31.3 % 04/14/22 13:55 [place] % (Auto) 6.9 % 04/14/22 13:55 Eos % (Auto) 1.9 % 04/14/22 13:55 Baso % (Auto) 1.0 % 04/14/22 13:55 Neut # (Auto) 2.45 10^3/uL (1.8-7.7) 04/14/22 13:55 Lymph # (Auto) 1.3 10^3/uL (0.8-4.8) 04/14/22 13:55 [place] # (Auto) 0.3 10^3/uL (0.2-0.9) 04/14/22 13:55 Eos # (Auto) 0.1 10^3/uL (0.0-0.8) 04/14/22 13:55 Baso # (Auto) 0.0 10^3/uL (0.0-0.1) 04/14/22 13:55 Nucleated RBC % (auto) 0 % 04/14/22 13:55 Nucleated RBCs # 0.0 /100WBC 04/14/22 13:55 D-Dimer 0.40 ug/mIFEU (0-0.59) 04/14/22 13:55 Sodium 138 mmol/L (136-145) 04/14/22 13:55 Potassium 4.0 mmol/L (3.5-5.1) 04/14/22 13:55 Chloride 101 mmol/L (98-107) 04/14/22 13:55 Carbon Dioxide 25 mmol/L (22-29) 04/14/22 13:55 Anion Gap 16.0 (5-19) 04/14/22 13:55 BUN 8 mg/dL (6-20) 04/14/22 13:55 Creatinine 0.7 mg/dL (0.5-0.9) 04/14/22 13:55 GFR Calculation 90.9 mL/min (90-130) 04/14/22 13:55 Glucose 83 mg/dL (65-115) 04/14/22 13:55 Calculated Osmolality 283 mOsm/kg (285-295) L 04/14/22 13:55 Calcium 9.1 mg/dL (8.5-10.5) 04/14/22 13:55 Total Bilirubin 0.4 mg/dL (0.15-1.2) 04/14/22 13:55 AST 20 U/L (0-32) 04/14/22 13:55 ALT 20 U/L (0-33) 04/14/22 13:55 Alkaline Phosphatase 70 U/L (35-105) 04/14/22 13:55 Troponin T Baseline 6 ng/L (0-10) 04/14/22 13:55 Troponin T 120 Minute 6.00 ng/L (0-10) 04/14/22 16:04 Delta Troponin T 0 ABS# (0-10) 04/14/22 16:04 NT-Pro-B Natriuret Pep 87 pg/mL (0-125) 04/14/22 13:55 Total Protein 6.6 g/dL (6.6-8.7) 04/14/22 13:55 Albumin 4.2 g/dL (3.5-5.2) 04/14/22 13:55 Globulin 2.4 g/dL (1.3-4.6) 04/14/22 13:55 Lipase 31 U/L (13-60) 04/14/22 13:55 Discharge Plan Discharge Patient Disposition: Home Clinical Impression: Chest pain, Arm paresthesia, left Condition: Stable Prescriptions: No Action cetirizine [Zyrtec] 10 mg Tablet 10 mg PO DAILY PRN (Reason: Allergy Symptoms) fexofenadine 180 mg Tablet 180 mg PO DAILY PRN (Reason: Allergy Symptoms) alprazolam 0.5 mg tablet 1 mg PO BID PRN (Reason: Anxiety) montelukast 10 mg tablet 10 mg PO QPM PRN (Reason: Allergy Symptoms) ibuprofen 800 mg tablet 800 mg PO Q6H PRN (Reason: Pain) Tylenol 325 mg Capsule 325 mg PO QID PRN (Reason: Pain) Discharge Orders: Discharge ED (Routine); Ordered 04/14/22 Ordered By: Luis Mtz Referrals: Suad Sarabia FNP [Primary Care Provider] - Discharge Diet: Usual diet Discharge Activity: Increase activity as tolerated Patient Instructions: Chest Pain (ED), Paresthesia (ED), Back Pain (ED), Opioid Safety Activity Restrictions/Additional Instructions: Thank you for visiting the emergency department you were seen and evaluated for chest pain, arm paresthesias, and back pain. The exact cause of your symptoms is unclear. Given previous inpatient cardiac work-up I recommend continued outpatient work-up. 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 Please return to the emergency department for uncontrolled symptoms or anything else that you are concerned about a feel needs emergency department evaluation. Coding Level of Care Code ED Retail Office Manager for Wilian Fwd Exam Comprehensive
--- NOTE | 2022-04-14 13:04 | ECG_ITS ---
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
--- NOTE | 2022-04-14 13:04 | XRR_ITS ---
PROCEDURE INFORMATION: Exam: XR Chest Exam date and time: 04/14/2022 1:32 PM Age: 46 years old Clinical indication: Angina pectoris; Patient HX: Chest pain on left side that radiates down left arm TECHNIQUE: Imaging protocol: Radiologic exam of the chest. Views: 1 view. COMPARISON: CR XR chest 1V portable [id number] 09/07/2021 12:25 PM FINDINGS: Lungs: Unremarkable. No consolidation. Pleural spaces: Unremarkable. No pleural effusion. No pneumothorax. Heart/Mediastinum: Unremarkable. No cardiomegaly. Bones/joints: Unremarkable. XR/XR chest 1V portable [id number] IMPRESSION: No acute findings.
[2022-04-14 13:06] VITALS: BP 171/90; PULSE 64; RESP 16; O2SAT 100
[2022-04-14] MEDS: aspirin 81 mg Chew Tablet 324 MG PO (13:15)
--- NOTE | 2022-04-14 13:39 | ECG_ITS ---
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 Measurements Intervals [place] Rate: 61 P: 47 DE: 158 QRS: 33 QRSD: 82 T: 14 QT: 424 QTc: 428 Interpretive Statements SINUS RHYTHM NONSPECIFIC T-WAVE ABNORMALITY Compared to ECG 04/14/2022 11:31:14 NO SIGNIFICANT CHANGE Electronically Signed On 04-15-2022 7:32:31 CDT by Sandra Poole M.D. [id number]
[2022-04-14 14:06] LABS: Eosinophils # 0.1 10^3/uL (0.0-0.8); Eosinophils % 1.9 %; Hemoglobin 11.8 g/dL (11.5-15.3); Lymphocytes # 1.3 10^3/uL (0.8-4.8); Lymphocytes % 31.3 %; Mean Corpuscular HGB Conc 32.8 g/dL (30.0-36.0); Mean Corpuscular Hemoglobin 31.6 pg (28.0-34.0); Mean Corpuscular Volume 96.3 fl (81-99); Mean Platelet Volume 9.2 fL (7.4-10.4); Monocytes # 0.3 10^3/uL (0.2-0.9); Monocytes % 6.9 %; Neutrophils # 2.45 10^3/uL (1.8-7.7); Neutrophils % 58.7 %; Nucleated Red Blood Cells % 0 %; Platelet Count 345 10^3/cmm (130-400); Red Blood Count 3.74 10^6/uL (4.1-5.3); Red Cell Distribution Width 12.4 % (12.1-15.1); White Blood Count 4.2 10^3/uL (4.0-10.0)
[2022-04-14 14:29] LABS: Troponin(5th) Baseline 6 ng/L (0-10)
--- NOTE | 2022-04-14 14:30 | CTR_ITS ---
PROCEDURE INFORMATION: Exam: CT Head Without Contrast Exam date and time: 04/14/2022 2:46 PM Age: 46 years old Clinical indication: Pain; Headache; Additional info: L arm numbness TECHNIQUE: Imaging protocol: Computed tomography of the head without contrast. Radiation optimization: All CT scans at this facility use at least one of these dose optimization techniques: automated exposure control; mA and/or kV adjustment per patient size (includes targeted exams where dose is matched to clinical indication); or iterative reconstruction. COMPARISON: CT head wo con* [id number] 07/11/2020 12:46 PM RADIATION DOSE METRICS: Total DLP (mGy-cm): 1060.98 FINDINGS: Brain: Normal. No hemorrhage. Unremarkable white matter. No mass effect. Cerebral ventricles: No ventriculomegaly. Paranasal sinuses: Visualized sinuses are unremarkable. No fluid levels. Mastoid air cells: Visualized mastoid air cells are well aerated. Bones/joints: Unremarkable. No acute fracture. Soft tissues: Unremarkable. CT/CT head wo con* [id number] IMPRESSION: No acute intracranial abnormality.
[2022-04-14 14:39] LABS: Alanine Aminotransferase 20 U/L (0-33); Albumin Level 4.2 g/dL (3.5-5.2); Alkaline Phosphatase 70 U/L (35-105); Aspartate Amino Transferase 20 U/L (0-32); Blood Urea Nitrogen 8 mg/dL (6-20); Calcium 9.1 mg/dL (8.5-10.5); Carbon Dioxide 25 mmol/L (22-29); Chloride 101 mmol/L (98-107); Globulin 2.4 g/dL (1.3-4.6); Glomerular Filtration Rate 90.9 mL/min (90-130); Glucose 83 mg/dL (65-115); Lipase 31 U/L (13-60); NT Pro B Type Natriuretic Pept 87 pg/mL (0-125); Osmolality Calculated 283 mOsm/kg (285-295); Sodium 138 mmol/L (136-145); Total Bilirubin 0.4 mg/dL (0.15-1.2); Total Protein 6.6 g/dL (6.6-8.7)
[2022-04-14] MEDS: morphine 4 mg/mL SDV 1 mL IVP (15:15)
[2022-04-14 15:22] VITALS: BP 162/82; PULSE 63; RESP 18; O2SAT 100
[2022-04-14 16:27] VITALS: BP 148/91; PULSE 59; RESP 18; O2SAT 100
[2022-04-14 17:12] LABS: Troponin 5 2HR Delta 0 ABS# (0-10)
[2022-04-14 17:40] VITALS: BP 137/71; PULSE 67; RESP 18; O2SAT 100
[2022-04-14 17:45] VITALS: BP 137/71; PULSE 66; RESP 18; O2SAT 100
== END 2022-04-14 17:45 | disposition home or self-care (01) ==
PROVIDERS: Emergency Provider Emergency Medicine; PCP Registered Nurse
DX: R07.9 Chest pain, unspecified (principal); R20.2 Paresthesia of skin
CPT/HCPCS: 70450; 71045; 80053; 83690; 83880; 84484; 85025; 85378; 93005; 93010; 96374; 99285; J2270

== ENCOUNTER 2022-07-15 13:00 | Outpatient (CLI) | payer OTHER, SELFPAY ==
[2022-07-15 13:34] LABS: Basophils % 0.7 %; Eosinophils # 0.2 10^3/uL (0.0-0.8); Eosinophils % 3.6 %; Hematocrit 35.5 % (37.0-47.0); Hemoglobin 11.6 g/dL (11.5-15.3); Lymphocytes # 1.4 10^3/uL (0.8-4.8); Lymphocytes % 32.5 %; Mean Corpuscular HGB Conc 32.7 g/dL (30.0-36.0); Mean Corpuscular Hemoglobin 31.2 pg (28.0-34.0); Mean Corpuscular Volume 95.4 fl (81-99); Mean Platelet Volume 9.6 fL (7.4-10.4); Monocytes # 0.4 10^3/uL (0.2-0.9); Monocytes % 9.9 %; Neutrophils % 53.1 %; Nucleated Red Blood Cells % 0 %; Platelet Count 286 10^3/cmm (130-400); Red Blood Count 3.72 10^6/uL (4.1-5.3); Red Cell Distribution Width 12.1 % (12.1-15.1); White Blood Count 4.2 10^3/uL (4.0-10.0)
[2022-07-15 13:45] LABS: INR 0.97 (0.83-1.21); Prothrombin Time (Patient) 13.2 Seconds (12.0-15.1)
[2022-07-15 13:49] LABS: Anion Gap 13.1 (5-19); Blood Urea Nitrogen 14 mg/dL (6-20); Carbon Dioxide 23 mmol/L (22-29); Chloride 105 mmol/L (98-107); Glomerular Filtration Rate 90.9 mL/min (90-130); Glucose 87 mg/dL (65-115); Osmolality Calculated 284 mOsm/kg (285-295); Potassium 4.1 mmol/L (3.5-5.1); Sodium 137 mmol/L (136-145)
== END 2022-07-15 13:01 | disposition home or self-care (01) ==
PROVIDERS: PCP Family Medicine; Visit Provider Internal Medicine Cardiovascular Disease
DX: R07.9 Chest pain, unspecified (principal)
CPT/HCPCS: 80048; 85025; 85610; 86850; 86900

== ENCOUNTER 2022-07-21 07:45 | Outpatient (CLI) | payer OTHER, SELFPAY ==
[2022-07-21] VITALS (20 sets, daily range): BP systolic 117–154; BP diastolic 55–85; PULSE 46–63; RESP 0–22; TEMP 36.6–36.7; O2SAT 96–99; BMI 30.4
--- NOTE | 2022-07-21 08:30 | XACV_ITS ---
Exam Room: 2 Ht: 163 cm Wt: 80 kg BSA: 1.93 m2 Gender: Female : 1975 Any Known Allergies: Other Exam Priority: Routine Procedure(s): Procedure Description: Diagnostic procedure Procedure Description: Left Heart Catheterization Procedure Description: Left ventriculography Procedure Description: Coronary Angiography Kvng STANTON; Diagnostic Cath Status: Elective Diagnostic Findings * The left main is a medium caliber vessel with no significant stenotic lesions. * Left tender descending artery is a medium caliber vessel which appears to taper off to his LV apex. The artery appears to be is tortuous. The artery appears to bifurcate in the mid segment giving off a fairly large caliber diagonal vessel. The first septal engraver tire mold also is a relatively large caliber vessel with no significant stenotic lesions.. * The circumflex artery is a medium caliber vessel with no significant stenotic lesions. It continues as an obtuse marginal vessel. The circumflex proper in the AV groove appears to be very rudimentary. * The right coronary artery is a medium to large caliber dominant vessel with no * significant stenotic lesions.. Conclusions 1. 46-year-old white female with multiple risk factors for coronary artery disease, including family history for premature atherosclerotic heart disease, presenting with increasing episodes of chest pain. She had an unremarkable stress test and echocardiogram. For further evaluation of chest pain, a CTCA was recommended. Apparently this was not approved. In view of the ongoing symptoms, we recommended a coronary angiogram, to further evaluate the symptoms. Patient underwent left heart catheterization with left and right coronary angiogram and LV angiogram today. Findings are as follows. 2. No significant obstructive coronary artery disease. Evidence of left ventricular diastolic function with an LVEDP of 21 mmHg. Diagnostic RX Recommendation: medical therapy and/or counseling LV EDP: 21 mmHg Ventriculography Ejection Fraction: 60.0 % Left Ventriculography Findings: * The LV gram was performed in the [place] projection. The LV cavity appears to be normal size. LV ejection fraction was around 60%. No wall motion abnormalities noted. No significant mitral valve prolapse or mitral regurgitation. No filling defects were noted. The LVEDP was 21 mmHg, went up to 26 following the LV angiogram. Pressures Phase:Rest AO : 107 / 57 ( 80 ) @ 10:04:00 AM 104 / 69 ( 87 ) @ 10:05:00 AM 153 / 82 ( 115 ) @ 10:16:00 AM 156 / 87 ( 117 ) @ 10:16:00 AM LV : 140 / 11 / 21 @ 10:14:00 AM 136 / 10 / 29 @ 10:15:00 AM 132 / 11 / 26 @ 10:16:00 AM Valves Phase:DefaultPhase AV : 0.0 @ 10:28:59 AM AV Mean Gradient: 0.0 @ 10:28:59 AM Clinical Evaluation EBL: 5mL-10mL Procedural Details Procedure Consent Obtained. Admit Source: Out Patient. Pre-Procedure Time Out. Identified patient by full name and date of as verbalized by the patient/guarantor. Does the consent match the physician's order: Yes. Accurate & Complete Informed Consent: Yes. Inpatient/Outpatient History & Physical on Chart: Yes. If H&P is completed, is and addenduem needed: No; If yes, is the addendum complete: N/A. Visualize and Verify Site with Patient/Guarantor: N/A. Relevant Radiology Images available: N/A. The risks, benefits, and alternatives of sedation and/or procedure were discussed by physician. The patient agrees to continue. Procedure started. angiomax/saline mixture bags used for assist device and flush for back table instead of heparinized saline due to alpha gal. [facility] Clinical Fraility Score: 2: Well. 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 Chest Pain Symptom Assessment: Atypical Angina. Cardiovascular Instability: Yes, if yes, Hemodynamic Instability. Cardiovascular Instability: No,. Correct patient, site and procedure confirmed by cath team. Current diagnosis: Stable angina. PERRLA. 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 Lungs clear x 5 lobes. IV Site on Arrival: 20 gauge in the left anticubital. IV Fluids: 0.9% NaCl at KVO. 0 mL infused prior to medical lab technician. Pre Procedural Pulses: bilateral dorsalis pedis was 2+. Pre Procedural Pulses: bilateral posterior tibial was 2+. Pre Procedural Pulses: bilateral radial was 2+. Oxygen started at 2liters/min via nasal canula. right groin was prepped with chloroprep then draped in the usual sterile fashion. right radial was prepped with chloroprep then draped in the usual sterile fashion. Physician notified. Baseline sample Acquired. HR: 46 BPM. Physician arrived. Physician scrubbed in. Immediate Pre-Procedure Time Out. Correct Patient: Yes; Correct Procedure: Yes; Correct Site: Yes; Correct Patient Position: Yes; Correct Supplies: Yes; Dried Flammable Prep: Yes; Blood Products Available: N/A;. Lidocaine 1% infiltrated to the right radial. Arterial access obtained. A 5 romansh TIG catheter in over wire. Multiple views taken of left coronary artery. Catheter removed over the exchange wire. A 5 romansh JR4 catheter in over wire. Multiple views taken of right coronary artery. Catheter out. A 6 romansh Angled Pig catheter in over wire. EDP Sample taken: LV 140/11,21; HR: 50 BPM; SpO2: 99%. LV gram performed in [place] @ 10 mL/second for a total of 30 mL. EDP Sample taken: LV 136/10,29; HR: 57 BPM; SpO2: 99%. Pullback taken: LV 132/11,26; AO 153/82(115); Mean: 0mmHg, Peak to Peak: 0mmHg, SEP: 5sec/min; HR: 66 BPM; SpO2: 99%. angimax stopped. A TR Band was successful obtaining hemostatsis at the Right Radial artery insertion site. Post Procedure: Pulses reassessed and unchanged. PERRLA. 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 No VTE prophylaxis required. Medication's Wasted: Lidocaine 1% = 3 mL. Medication's Wasted: Verapamil = 5 mg. Medication's Wasted: Nitro = 49.7 mg. Medication's Wasted: Heparin = 5000 units. Medication's Wasted: Other = solu medrol 65 mg. Medication's Wasted: Other = angiomax 163.5 mg. Total IV fluids: 250 mL. Post-op diagnosis: LVDD. Complications: none. Estimated blood loss: 5mL-10mL. Responsiveness - Normal response to verbal stimuli; alert and oriented, PERRLA. Airway - Unaffected, no intervention required; spontaneous ventilation. Circulation: W/N/L, pulses unchanged. Nausea/Vomiting: Yes. Procedure completed. Patient transferred by wheelchair to CPRU. Vital chart was stopped. Access Site Site: Right Radial artery Sheath Size: 6 Fr Hemostasis Method: TR Band Hemostasis Success: Successful Procedure Medications Start: 9:50 AM Stop: 9:50 AM Medication: Solu-Medrol (methylprednisolone) Amount: 60 mg Route: I.V. Start: 9:50 AM Stop: 9:50 AM Medication: Versed Amount: 1 mg Route: I.V. Start: 9:50 AM Stop: 9:50 AM Medication: Fentanyl Amount: 50 mcg Route: I.V. Start: 9:56 AM Stop: 9:56 AM Medication: Versed Amount: 1 mg Route: I.V. Start: 9:56 AM Stop: 9:56 AM Medication: Fentanyl Amount: 50 mcg Route: I.V. Start: 9:59 AM Stop: 9:59 AM Medication: Nitrogylcerin Amount: 100 mcg Route: S.Q. Start: 10:01 AM Stop: 10:01 AM Medication: Nitrogylcerin Amount: 200 mcg Route: I.A. Start: 10:03 AM Stop: 10:03 AM Medication: Angiomax Amount: 12 ml Route: I.V. Start: 10:05 AM Stop: 10:05 AM Medication: Angiomax Amount: 28 ml/min Route: I.V. Start: 10:06 AM Stop: 10:06 AM Medication: 0.9% Saline Amount: 200 ml Route: I.V. bolus Start: 10:25 AM Stop: 10:25 AM Medication: Zofran (ondansetron) Amount: 4 mg Route: I.V. I, the attending physician, have reviewed and verified all procedure medications. Yes, all medications given per verbal order History/Risk Factors Hypertension: Yes Dyslipidemia: Yes Peripheral Arterial Disease (PAD): No Myocardial Infarction (AL): No Obesity: No Tobacco Use: Current/Recent(w/in 1 year) Prior Interventions PCI: No CABG: No Valve Surgery: No Report Signatures Finalized by Dr Ed Calderon MD [facility] on 07/21/2022 12:46 PM
--- NOTE | 2022-07-21 08:50 | W.PM.OPSUD ---
Surgery/Procedure H&P Update DATE OF PROCEDURE: July 21, 2022 DATE H&P PERFORMED: 07/09/22 H&P UPDATE INFORMATION: I have reviewed H&P completed within last 30 days, I have examined patient prior to procedure and No changes to prior documentation PREOP DIAGNOSIS: Suspected CAD PRIMARY INDICATION FOR PROCEDURE: Chest pain, multiple risk factors for CAD PLANNED PROCEDURE: Operation Date: 07/21/22 08:30 Proposed Procedures p [id number] Left Heart Catheterization R07.9,I07.1,Z82.49,Z86.79(Left) - Ed Calderon MD PATIENT REASSESSED PRIOR TO SEDATION, WITH NO CHANGE NOTED: Yes PHYSICAL EXAM: alert, oriented x 3 and clear to auscultation bilaterally AIRWAY EVAL/ANESTHESIA PLAN: normal airway, see other exam findings, ASA II, Monitored Anesthesia, Local Anesthesia, Risks, benefits & alternatives of sedation and/or procedure discussed and Patient agrees to continue as planned
--- NOTE | 2022-07-21 15:15 | PC.NURSE ---
Around 1500: Transferred patient to CSU. . Slight hematoma formation noted, site marked. Vitals stable. Dr. Calderon notified, no new orders received. Report given to ABRIL Mitchell. All belonging with patient. Patient transferred to CSU via wheelchair.
--- NOTE | 2022-07-21 18:57 | PC.NURSE ---
TR band was removed at 1712 with small hematoma noted. Dr. Calderon aware. Patient was given instructions and education about using wrist post cath. Patient verbalized understanding of all education. Patient ambulated with nurse to surgery entrance.
== END 2022-07-21 18:57 | disposition home or self-care (01) ==
LOC: CCL 12:57 → CSU 17:48
PROVIDERS: PCP Family Medicine; Visit Provider Internal Medicine Cardiovascular Disease
DX: R07.9 Chest pain, unspecified (principal); Z82.49 Family history of ischemic heart disease and other diseases of the circulatory system; E78.5 Hyperlipidemia, unspecified; Z87.891 Personal history of nicotine dependence; R03.0 Elevated blood-pressure reading, without diagnosis of hypertension; I07.1 Rheumatic tricuspid insufficiency
CPT/HCPCS: 36415; 93458; 96361; 96365; 96367; 99152; 99153; C1769; C1887; C1894; J0583; J1644; J2250; J2405; J2930; J3010; J3490; J7030; Q9967

== ENCOUNTER → 2022-07-30 14:32 | Outpatient (BNVA) | payer OTHER, SELFPAY | PROVIDERS: PCP Family Medicine; Visit Provider Nurse Practitioner Family | DX: Z09 Encounter for follow-up examination after completed treatment for conditions other than malignant neoplasm (principal); R07.9 Chest pain, unspecified | CPT/HCPCS: 80048 ==

== ENCOUNTER 2023-01-09 16:42 | Emergency (ER) | payer OTHER, SELFPAY ==
[2023-01-09 16:46] VITALS: BP 179/84; PULSE 77; RESP 16; TEMP 36.6; O2SAT 100; BMI 35.2
--- NOTE | 2023-01-09 17:36 | ED_ITS ---
HPI - General Adult General: Chief complaint: General Medical Stated complaint: something bit hand/dizzy Time Seen by Provider: 01/09/23 17:23 History of Present Illness: Patient is a 47-year-old female comes to the ED after insect bite or sting to left hand. Injury occurred just prior to arrival. Patient says she was out working in her garden and she was stung or bit by an unknown insect on dorsal aspect of left hand between second and third fingers. She has some swelling to sting area and also reports some numbness/tingling sensation to the area and her second and third fingers. Denies any trouble breathing, lip or tongue swelling. She does endorse some nausea. Patient has a history of alpha gal. Denies any known allergies to wasp or bee stings. Associated symptoms: Reports rash (Insect sting on left hand); Deny chest pain, dyspnea, headache(s), nausea, palpitations or vomiting Review of Systems Const: Denies: fever(s), chills or fatigue Eyes: Denies: change in vision or eye discomfort ENMT: Denies: throat pain, odynophagia, nasal discharge or nasal congestion Card: Denies: chest pain, palpitations, edema, swelling of feet/ankles, dyspnea on exertion or orthopnea Resp: Denies: dyspnea, productive cough or non-productive cough GI: Denies: abdominal pain, nausea, vomiting, diarrhea, constipation or hematochezia : Denies: flank pain, dysuria or hematuria Musc: Denies: neck pain, back pain or extremity swelling Skin/Breast: Reports: rash (Insect sting on left hand); Denies: new lesions Neuro: Denies: headache(s), numbness in extremities or weakness in extremities PFSH ED PFSH: Medical History Psychiatric care Surgical History Gastric bypass status for obesity Family History Mother CAD (coronary artery disease) [place] @ 38 Cancer Family/Other CAD (coronary artery disease) Suicide Grandmother CAD (coronary artery disease) Grandmother CAD (coronary artery disease) Father Suicide Denies family history of Diabetes Clotting disorder Dementia Chronic kidney disease (CKD) Anesthesia complication Bleeding disorder Lung disease Stroke Social History Smoking and tobacco status: current every day smoker e-cigarettes E-Cigarette Details: vaporizer device and with nicotine E-cig/vape details: Refill/ month plus Quit status (tobacco): has tried quititng Number of times tried to quit tobacco: 1 Second hand smoke exposure: No Smoking risk assessment/counseling performed?: No Alcohol intake: former Desire information about alcohol rehabilitation?: No Counseling given: No Substance/Drug Use: never Desire information about substance/drug rehabilitation?: No Counseling given: No Physical Exam Const: COMMON NORMALS: patient oriented x3 HENMT: COMMON NORMALS: normocephalic HEAD & SCALP: normocephalic MOUTH: Normal oral and palatal mucosa present, lip normal and tongue normal THROAT: posterior oropharynx normal and uvula midline Neck/C-Spine: COMMON NORMALS: supple GENERAL: Yes normal visual inspection Resp: COMMON NORMALS: normal respiratory effort, No retractions, No use of accessory muscles and clear to auscultation bilaterally AUSCULTATION: clear to auscultation bilaterally Cardio: COMMON NORMALS: regular rate, regular rhythm, S1 normal heart sound present, S2 normal heart sound present, No gallops present (Cardio), No clicks present (Cardio), No murmurs present (Cardio) and Peripheral pulses 2+ throughout RATE: regular rate RHYTHM: regular rhythm HEART SOUNDS: S1 normal heart sound present and S2 normal heart sound present PERIPHERAL PULSES: Peripheral pulses 2+ throughout GI: COMMON NORMALS: Normal to inspection, nondistended, normoactive bowel sounds present, Soft to palpation, non-tender and no masses PALPATION: Yes Soft to palpation : COMMON NORMALS: Yes no CVA tenderness BLADDER/KIDNEY EXAM: Yes no CVA tenderness Back/Pelvis: COMMON NORMALS: no CVA tenderness Extremity: NARRATIVE EXTREMITY EXAM: Left hand?small puncture wound noted on dorsal aspect of hand in between second and third digits. Some erythema and swelling noted. No purulent drainage or warmth noted. Neuro: COMMON NORMALS: patient oriented x3 GAIT: Yes Normal gait present Skin: GENERAL SKIN EXAM: dry skin Course Vital Signs: Vital signs: Vital Signs Temperature 97.9 F 01/09/23 16:46 Pulse Rate 77 01/09/23 16:46 Respiratory Rate 16 01/09/23 16:46 Blood Pressure 179/84 01/09/23 16:46 Pulse Oximetry 100 01/09/23 16:46 Oxygen Delivery Me thod Room Air 01/09/23 16:46 MDM - General Adult Medical Decision Making Patient is a 47-year-old female comes to the ED after insect bite or sting to left hand. Injury occurred just prior to arrival. Patient says she was out working in her garden and she was stung or bit by an unknown insect on dorsal aspect of left hand between second and third fingers. She has some swelling to sting area and also reports some numbness/tingling sensation to the area and her second and third fingers. Denies any trouble breathing, lip or tongue swelling. She does endorse some nausea. Patient has a history of alpha gal. Denies any known allergies to wasp or bee stings.vital stable. Patient appears nontoxic and in no acute distress or pain. Left hand?small puncture wound noted on dorsal aspect of hand in between second and third digits. Some erythema and swelling noted. No purulent drainage or warmth noted. Patient was given a dose of IM Benadryl and prednisone and was stable for discharge home. She was diagnosed with an insect sting and discharged home with a prescription for some prednisone. Strict return to ED precautions given. Follow-up with PCP in the next week for reevaluation. Patient understood and agreed with plan. Discharge Plan Discharge Patient Disposition: Home Clinical Impression: Insect bite or sting Condition: Stable Prescriptions: New prednisone 20 mg tablet 20 mg PO BID 3 Days Qty: 6 0RF No Action aspirin [Adult Aspirin Regimen] 81 mg tablet,delayed release (DR/EC) 81 mg PO DAILY nitroglycerin 0.4 mg tablet, sublingual 0.4 mg sublingual Q5M PRN (Reason: chest pain) 30 Days Qty: 30 3RF Rx Instructions: until response; do not exceed 3 doses per episode duloxetine [Cymbalta] 60 mg capsule,delayed release(DR/EC) 60 mg PO DAILY Qty: 90 0RF trazodone 50 mg tablet 100 mg PO .HS PRN (Reason: insomnia) Qty: 60 2RF sulfamethoxazole-trimethoprim [Bactrim DS] 800-160 mg tablet 1 tab PO BID 7 Days Qty: 14 0RF Rx Instructions: check to make sure it is safe for her alpha gal miscellaneous medical supply Misc 1 ea miscellaneous DAILY Qty: 1 0RF Rx Instructions: medihoflora furosemide 40 mg tablet 40 mg PO DAILY Qty: 90 0RF diltiazem HCl 120 mg capsule,extended release 24hr 120 mg PO DAILY Qty: 90 3RF valsartan 160 mg tablet 160 mg PO DAILY Qty: 90 1RF cetirizine [Zyrtec] 10 mg Tablet 10 mg PO DAILY PRN (Reason: Allergy Symptoms) fexofenadine 180 mg Tablet 180 mg PO DAILY PRN (Reason: Allergy Symptoms) montelukast 10 mg tablet 10 mg PO QPM PRN (Reason: Allergy Symptoms) alprazolam 0.5 mg tablet 1 mg PO TID PRN (Reason: Anxiety) acetaminophen [Tylenol] 325 mg Capsule 325 mg PO QID PRN (Reason: Pain) Discharge Orders: Discharge ED (Routine); Ordered 01/09/23 Ordered By: Booker Zuluaga Referrals: HARSHA LYNN MD [Primary Care Provider] - Discharge Diet: Regular Discharge Activity: Increase activity as tolerated Patient Instructions: Insect Bite or Sting (ED) Activity Restrictions/Additional Instructions: Follow-up with medical provider as directed in the next 3 to 5 days for reevaluation. Take medications as prescribed. Return to the ER or your medical provider if condition worsens. Please read and understand discharge instructions. Thank you for choosing [facility] for your healthcare needs today. Please realize this is an emergency room and that we are providing you with a medical screening exam and this may not be complete and all inclusive of all the testing and or work up that you may need to determine your ailment or severity of your illness. It is very important that you follow up as instructed or that you return to the Emergency Department should you have concerns or if your condition changes or worsens in any way. Coding Level of Care Code ED Identification Printing Machine Setter for Wilian Young
[2023-01-09] MEDS: predniSONE 20 mg Tablet 60 MG PO (17:59)
[2023-01-09] MEDS: ondansetron 4 MG Tablet PO (18:00)
[2023-01-09] MEDS: diphenhydrAMINE 50 mg/mL SDV 1mL 25 MG IM (18:00)
== END 2023-01-09 18:16 | disposition home or self-care (01) ==
PROVIDERS: Emergency Provider Physician Assistant; PCP Family Medicine
DX: S60.562A Insect bite (nonvenomous) of left hand, initial encounter (principal); W57.XXXA Bitten or stung by nonvenomous insect and other nonvenomous arthropods, initial encounter; Z79.82 Long term (current) use of aspirin; F17.290 Nicotine dependence, other tobacco product, uncomplicated
CPT/HCPCS: 96372; 99284; J1200; J7512; Q0162

== ENCOUNTER → 2023-05-21 11:27 | Outpatient (BNVA) | payer OTHER, SELFPAY | PROVIDERS: PCP Family Medicine; Visit Provider Podiatrist Foot & Ankle Surgery | DX: Z87.81 Personal history of (healed) traumatic fracture; M19.071 Primary osteoarthritis, right ankle and foot | CPT/HCPCS: 73610 ==

== ENCOUNTER 2023-06-02 16:27 | Outpatient (CLI) | payer OTHER, SELFPAY ==
--- NOTE | 2023-06-02 16:30 | CT_ITS ---
WS: [id number] CT RIGHT ANKLE, NONCONTRAST. HISTORY: previous fracture / surgery right ankle pain and swelling Technique: All CT scans at [facility] use at least one of these dose optimization techniques: automated exposure control; mA and/or kV adjustment per patient size (includes targeted exams where dose is matched to clinical indication); or iterative reconstruction. DLP: 128.91 mGy.cm COMPARISON: Radiographs 05/21/2023 Extensive arthrodesis and orthopedic screws are noted through the ankle joint. Complete fusion, osseo us and hardware, across the tibiotalar joint space. There is an additional distal tibiofibular joint space fusion. There are syndesmosis screws. No lucency or fractures involving the hardware in the dis eric tibia, fibula, talus or calcaneus. Loss of the normal arch of the foot. There is bone upon bone involving the medial talocalcaneal joint space. No fractures are identified. Tarsal bones appear appropriately aligned. Osteophytes and hypertrophic bone formation at the ankle j oint. IMPRESSION: 1. Complete fusion across the tibiotalar joint space. Both osseous and hardware fusion. 2. Osseous fusion of the distal tibiofibular joint space. 3. Severe narrowing medial talocalcaneal joint space with bone upon bone. 4. Loss of the normal arch of the foot. 5. Advanced degenerative changes at the ankle joint. No fractures or destructive bone process.
== END 2023-06-02 16:28 | disposition home or self-care (01) ==
LOC: RAD 16:28
PROVIDERS: PCP Family Medicine; Visit Provider Podiatrist Foot & Ankle Surgery
DX: Z87.81 Personal history of (healed) traumatic fracture (principal); Z98.890 Other specified postprocedural states; M25.571 Pain in right ankle and joints of right foot; M25.471 Effusion, right ankle; Z98.1 Arthrodesis status; M19.071 Primary osteoarthritis, right ankle and foot
CPT/HCPCS: 73700

== ENCOUNTER → 2023-12-12 13:26 | Outpatient (BNVA) | payer OTHER, SELFPAY | PROVIDERS: PCP Family Medicine; Visit Provider Nurse Practitioner | DX: R39.9 Unspecified symptoms and signs involving the genitourinary system (principal) | CPT/HCPCS: 81000 ==

== ENCOUNTER 2023-12-17 10:33 | Emergency (ER) | payer OTHER, SELFPAY ==
[2023-12-17 10:54] VITALS: BP 129/81; PULSE 81; RESP 17; TEMP 36.8; O2SAT 100; BMI 36.3
--- NOTE | 2023-12-17 10:58 | ED_ITS ---
HPI - Skin/Abscess/Foreign Bdy 2 General: Chief complaint: Skin/Abscess/Foreign Body Stated complaint: left hand pain Time Seen by Provider: 12/17/23 10:55 History of Present Illness: 48-year-old female who presents the [facility] room secondary to a blisterlike lesion in between her fourth and fifth digit of her left hand. She says she has had this before and received some sort of dermatologic diagnosis. Her primary has her on Bactrim for UTI. Provided her with a topical steroid. She is here today because she feels weak and has some malaise and has concerned she might have a blood infection that might get into her knee and is requesting blood cultures. She has had some fevers recently. Review of Systems 2 Narrative: Constitutional symptoms: Negative except as documented in HPI. Skin symptoms: Negative except as documented in HPI. Eye symptoms: Negative except as documented in HPI. ENMT symptoms: Negative except as documented in HPI. Respiratory symptoms: Negative except as documented in HPI. Cardiovascular symptoms: Negative except as documented in HPI. Gastrointestinal symptoms: Negative except as documented in HPI. Genitourinary symptoms: Negative except as documented in HPI. Musculoskeletal symptoms: Negative except as documented in HPI. Neurologic symptoms: Negative except as documented in HPI. Psychiatric symptoms: Negative except as documented in HPI. Endocrine symptoms: Negative except as documented in HPI. PFSH ED 2 PFSH: Medical History Psychiatric care Surgical History Gastric bypass status for obesity Family History Mother CAD (coronary artery disease) [place] @ 38 Cancer Family/Other CAD (coronary artery disease) Suicide Grandmother CAD (coronary artery disease) Grandmother CAD (coronary artery disease) Father Suicide Denies family history of Diabetes Clotting disorder Dementia Chronic kidney disease (CKD) Anesthesia complication Bleeding disorder Lung disease Stroke Social History Smoking and tobacco/nicotine status: current every day tobacco/nicotine user e- cigarettes E-Cigarette Details: vaporizer device and with nicotine E-cig/vape details: Refill/ month plus Quit status (tobacco/nicotine): has tried quititng Number of times tried to quit tobacco: 1 Second hand smoke exposure: No Alcohol intake: former Substance/Drug Use: never Physical Exam 2 Narrative: EXAM NARRATIVE: General: Alert, no acute distress. Skin: warm and dry, bullous lesion on in between the web of her fourth and fifth digits. Head: Normocephalic Neck: Trachea midline Eye: Extraocular movements are intact. Ears, nose, mouth and throat: Oral mucosa moist Respiratory: Respirations are non-labored Musculoskeletal: Normal ROM Neurological: Alert and oriented to person, place, time, and situation, No focal neurological deficit observed. Psychiatric: Cooperative, appropriate mood & affect. Course 2 Vital Signs: Vital signs: Vital Signs Temperature 98.2 F 12/17/23 10:54 Pulse Rate 79 12/17/23 11:02 Respiratory Rate 17 12/17/23 11:02 Blood Pressure 129/81 12/17/23 11:02 Pulse Oximetry 99 12/17/23 11:02 Oxygen Delivery Me thod Room Air 12/17/23 11:02 MDM - Skin/Abscess/Foreign Bdy Medicial Decision Making Medical decision making: Differential diagnosis including but not limited to and based on the above HPI, review of systems and physical exam: Going to place her on steroids. Basic lab work was drawn at patient request along with blood cultures Orders placed to evaluate differential diagnosis based on the above differential, HPI and physical exam Lab Review: Laboratory results were reviewed and interpreted by myself the emergency room physician. Lab work is fairly unremarkable other than her CRP is slightly elevated which would indicate she does have an inflammatory process I reviewed the patient's medical record. Lab Data 12/17/23 11:23 12/17/23 11:23 Laboratory Results WBC 6.44 10^3/uL (3.29-11.43) 12/17/23 11:23 RBC 3.88 10^6/uL (3.85-5.65) 12/17/23 11:23 Hgb 12.10 g/dL (11.27-16.99) 12/17/23 11:23 Hct 36.7 % (36-47) 12/17/23 11:23 MCV 94.6 fl (85-98) 12/17/23 11:23 MCH 31.2 pg (27-33) 12/17/23 11:23 MCHC 33.0 g/dL (30-55) 12/17/23 11:23 RDW 13.7 % (12.1-15.1) 12/17/23 11:23 Plt Count 421 10^3/cmm (157-399) H 12/17/23 11:23 MPV 9.0 fL (7.4-10.4) 12/17/23 11:23 Neut % (Auto) 62.4 % 12/17/23 11:23 Lymph % (Auto) 27.5 % 12/17/23 11:23 [place] % (Auto) 7.0 % 12/17/23 11:23 Eos % (Auto) 2.0 % 12/17/23 11:23 Baso % (Auto) 0.8 % 12/17/23 11:23 Neut # (Auto) 4.02 10^3/uL (1.8-7.7) 12/17/23 11:23 Lymph # (Auto) 1.8 10^3/uL (0.8-4.8) 12/17/23 11:23 [place] # (Auto) 0.5 10^3/uL (0.2-0.9) 12/17/23 11:23 Eos # (Auto) 0.1 10^3/uL (0.0-0.8) 12/17/23 11:23 Baso # (Auto) 0.1 10^3/uL (0.0-0.1) 12/17/23 11:23 Nucleated RBC % (auto) 0 % 12/17/23 11:23 Nucleated RBCs # 0.0 /100WBC 12/17/23 11:23 Sodium 138 mmol/L (136-145) 12/17/23 11:23 Potassium 4.4 mmol/L (3.5-5.1) 12/17/23 11:23 Chloride 104 mmol/L (98-107) 12/17/23 11:23 Carbon Dioxide 21 mmol/L (22-29) L 12/17/23 11:23 Anion Gap 17.4 (5-19) 12/17/23 11:23 BUN 15 mg/dL (6-20) 12/17/23 11:23 Creatinine 0.8 mg/dL (0.5-0.9) 12/17/23 11:23 GFR Calculation 77.2 mL/min (90-130) L 12/17/23 11:23 Glucose 89 mg/dL (65-115) 12/17/23 11:23 Calculated Osmolality 286 mOsm/kg (285-295) 12/17/23 11:23 Calcium 8.9 mg/dL (8.5-10.5) 12/17/23 11:23 Total Bilirubin 0.2 mg/dL (0.15-1.2) 12/17/23 11:23 AST 23 U/L (0-32) 12/17/23 11:23 ALT 26 U/L (0-33) 12/17/23 11:23 Alkaline Phosphatase 92 U/L (35-105) 12/17/23 11:23 C-Reactive Protein 19.5 mg/L (0.0-4.9) H 12/17/23 11:23 Total Protein 7.4 g/dL (6.6-8.7) 12/17/23 11:23 Albumin 4.2 g/dL (3.5-5.2) 12/17/23 11:23 Globulin 3.2 g/dL (1.3-4.6) 12/17/23 11:23 No radiology studies performed this visit Other Data Assessment and plan: -IM Decadron in the emergency room - Discharged home - Discussed plan with patient. Answered any questions. - Evaluation and treatment of this problem were appropriate in the emergency setting. Discharge Plan Discharge Patient Disposition: Home Clinical Impression: Bullous dermatitis Condition: Stable Prescriptions: New prednisone 20 mg tablet 60 mg PO DAILY Qty: 20 0RF Rx Instructions: 3 tabs (60 mg) x 3 days. 2 tabs (40 mg) x 3 days. 1 tab (20 mg) x 3 days. 1/2 tab (10 mg) x 4 days No Action tizanidine 4 mg tablet 4 mg PO DAILY PRN (Reason: MUSCLE SPASMS) sulfamethoxazole-trimethoprim [Bactrim DS] 800-160 mg tablet 1 tab PO BID 10 Days Qty: 20 0RF aspirin [Adult Aspirin Regimen] 81 mg tablet,delayed release (DR/EC) 81 mg PO DAILY nitroglycerin 0.4 mg tablet, sublingual 0.4 mg sublingual Q5M PRN (Reason: chest pain) 30 Days Qty: 30 3RF Rx Instructions: until response; do not exceed 3 doses per episode duloxetine 30 mg capsule,delayed release(DR/EC) 30 mg PO DAILY Qty: 90 0RF Rx Instructions: Take with 60 mg for total of 90 mg daily duloxetine [Cymbalta] 60 mg capsule,delayed release(DR/EC) 60 mg PO DAILY Qty: 90 0RF diltiazem HCl 120 mg capsule,extended release 24hr 120 mg PO DAILY Qty: 90 3RF valsartan 160 mg tablet 160 mg PO DAILY Qty: 90 1RF cetirizine [Zyrtec] 10 mg Tablet 10 mg PO DAILY fexofenadine 180 mg Tablet 180 mg PO DAILY PRN (Reason: Allergy Symptoms) montelukast 10 mg tablet 10 mg PO QPM PRN (Reason: Allergy Symptoms) acetaminophen [Tylenol] 325 mg Capsule 325 mg PO QID PRN (Reason: Pain) triamcinolone acetonide 0.1 % cream 1 applic TOPICAL BID PRN (Reason: Skin Irritation) hydroxyzine HCl 50 mg tablet 100 mg PO BEDTIME PRN (Reason: insomnia) Discharge Orders: Discharge ED (Routine); Ordered 12/17/23 Ordered By: Rose Cross Referrals: HARSHA LYNN MD [Primary Care Provider] - (You have been screened and evaluated and felt safe for discharge. Health conditions do change or evolve sometimes and as such it is important that you follow up with your Primary Doctor to be re checked, 3-5 days is a general good time frame for follow up. You are always welcome to return to the ED for re assessment if your symptoms are worsening or you have new concerns) Discharge Diet: Usual diet Discharge Activity: Increase activity as tolerated Patient Instructions: Dermatitis (ED) Coding Level of Care Code ED Boy'S Adviser for Wilian Young
[2023-12-17 11:02] VITALS: BP 129/81; PULSE 79; RESP 17; O2SAT 99
[2023-12-17] MEDS: dexamethasone 10 mg/mL INJ IM (11:06)
[2023-12-17 11:55] LABS: Basophils # 0.1 10^3/uL (0.0-0.1); Basophils % 0.8 %; Eosinophils # 0.1 10^3/uL (0.0-0.8); Hematocrit 36.7 % (36-47); Lymphocytes # 1.8 10^3/uL (0.8-4.8); Lymphocytes % 27.5 %; Mean Corpuscular Hemoglobin 31.2 pg (27-33); Mean Corpuscular Volume 94.6 fl (85-98); Monocytes # 0.5 10^3/uL (0.2-0.9); Neutrophils # 4.02 10^3/uL (1.8-7.7); Neutrophils % 62.4 %; Nucleated Red Blood Cells % 0 %; Platelet Count 421 10^3/cmm (157-399); Red Blood Count 3.88 10^6/uL (3.85-5.65); Red Cell Distribution Width 13.7 % (12.1-15.1); White Blood Count 6.44 10^3/uL (3.29-11.43)
[2023-12-17 12:18] LABS: Alanine Aminotransferase 26 U/L (0-33); Albumin Level 4.2 g/dL (3.5-5.2); Alkaline Phosphatase 92 U/L (35-105); Anion Gap 17.4 (5-19); Aspartate Amino Transferase 23 U/L (0-32); Blood Urea Nitrogen 15 mg/dL (6-20); C Reactive Protein 19.5 mg/L (0.0-4.9); Calcium 8.9 mg/dL (8.5-10.5); Carbon Dioxide 21 mmol/L (22-29); Chloride 104 mmol/L (98-107); Creatinine Clr Calc Pharmacy 105.9829; Globulin 3.2 g/dL (1.3-4.6); Glomerular Filtration Rate 77.2 mL/min (90-130); Glucose 89 mg/dL (65-115); Osmolality Calculated 286 mOsm/kg (285-295); Potassium 4.4 mmol/L (3.5-5.1); Sodium 138 mmol/L (136-145); Total Bilirubin 0.2 mg/dL (0.15-1.2); Total Protein 7.4 g/dL (6.6-8.7)
[2023-12-17 12:27] VITALS: BP 129/81; PULSE 72; RESP 17; O2SAT 100
== END 2023-12-17 12:36 | disposition home or self-care (01) ==
PROVIDERS: Emergency Provider Emergency Medicine; PCP Family Medicine
DX: L13.9 Bullous disorder, unspecified (principal); Z79.82 Long term (current) use of aspirin; F17.290 Nicotine dependence, other tobacco product, uncomplicated
CPT/HCPCS: 36415; 80053; 85025; 86140; 87040; 96372; 99284; J1100

== ENCOUNTER 2024-06-01 05:59 | Day surgery (SDC) | payer OTHER, SELFPAY ==
[2024-06-01] VITALS (8 sets, daily range): BP systolic 102–150; BP diastolic 54–86; PULSE 84–106; RESP 18; TEMP 36.2–36.8; O2SAT 92–97; BMI 35.5
--- NOTE | 2024-06-01 | XR_ITS ---
WS: [id number] XR ankle RT min 3V* [id number] REASON FOR EXAM: BRANDAN PICS FINDINGS: Previous calcaneal and complex ankle fracture with multiple screw fixation. Tibiotalar joint is fused . Compared to the previous examination of 05/16/2021, there has been the addition of hardware. Long screw fixation of the subtalar joint. Large large staple arthrodesis of the calcaneocuboid and talonavicular joints. No additional hardware is intact and in proper position and alignment. Arthrodesis alignment appears satisfactory. XR/XR ankle RT min 3V* [id number] IMPRESSION: Additional hardware placement for arthrodesis as above.
[2024-06-01] MEDS: acetaminophen 1,000 MG/100 ML PIGGYBACK 400 MG IV (06:36)
[2024-06-01] MEDS: sodium chloride 0.9% 1,000 ML 30 ML IV (06:41)
--- NOTE | 2024-06-01 06:51 | W.PM.OPSUD ---
Surgery/Procedure H&P Update DATE OF PROCEDURE: June 01, 2024 DATE H&P PERFORMED: 05/10/24 H&P UPDATE INFORMATION: I have reviewed H&P completed within last 30 days, I have examined patient prior to procedure, No changes to prior documentation and H&P is in [facility] EMR on date indicated PREOP DIAGNOSIS: Right subtalar joint arthritis PLANNED PROCEDURE: Operation Date: 06/01/24 07:00 Proposed Procedures p foot triple arthrodesis(Right) - Giovanni Catalan DPM s Hardware removal right ankle(Right) - Giovanni Catalan DPM
--- NOTE | 2024-06-01 07:02 | ANES.PREANE2 ---
Pre-Anesthetic Assessment Height/Weight: Height 1.68 m Weight 99.79 kg Temp Pulse Resp BP Pulse Ox O2 Del Method 98.2 F 84 18 150/86 97 Room Air 06/01/24 06:13 06/01/24 06:13 06/01/24 06:13 06/01/24 06:13 06/01/24 06:13 06/01/24 06:27 Preop Diagnosis: Right subtalar joint arthritis Operation Date: 06/01/24 07:00 Proposed Procedures p foot triple arthrodesis(Right) - Giovanni Catalan DPM s Hardware removal right ankle(Right) - Giovanni Catalan DPM Familial anesthetic complications: None Was Beta Everett taken within 24 hours: N/A Was Clonidine taken within 24 hours: N/A Last intake: Intake Last Liquid Date 05/31/24 Last Liquid Time 23:00 Last Solid Date 05/31/24 Last Solid Time 20:30 Social No alcohol and No tobacco hx etoh Exam alert, oriented x 3, clear to auscultation bilaterally and regular rate & rhythm Airway Mallampati: Class III Dentition: other (missing teeth) CV/HEM Congestive Heart Failure TVR Metabolic Morbid Obesity Anesthetic Plan ASA status: 3 Anesthesia: General and Regional (specify below) Risk of > 500 ml blood loss (7ml/kg in children): No Other Pertinent Information alpha gal Medications/Allergies Home Medications Medication Instructions Recorded Confirmed Last Taken Type cetirizine 10 mg tablet (Zyrtec) 10 mg PO DAILY Allergy Symptoms 07/11/20 05/31/24 12/17/23 History fexofenadine 180 mg tablet 180 mg PO DAILY PRN Allergy 07/11/20 05/31/24 07/11/20 History Symptoms montelukast 10 mg tablet 10 mg PO QPM PRN Allergy Symptoms 07/11/20 05/31/24 07/10/20 History acetaminophen 325 mg capsule 325 mg PO QID PRN Pain 04/14/22 05/31/24 05/28/24 History (Tylenol) nitroglycerin 0.4 mg sublingual 0.4 mg sublingual Q5M PRN chest 07/09/22 05/31/24 Unknown Rx tablet pain 30 days #30 tabs aspirin 81 mg tablet,delayed 81 mg PO DAILY 07/24/22 05/31/24 05/31/24 History release (Adult Aspirin Regimen) diltiazem HCl 120 mg 120 mg PO DAILY #90 caps 08/28/22 05/31/24 06/01/24 Rx capsule,extended release 24 hr valsartan 160 mg tablet 160 mg PO DAILY #90 tabs 08/28/22 05/31/24 05/31/24 Rx duloxetine 30 mg capsule,delayed 30 mg PO DAILY #90 caps 04/21/24 05/31/24 06/01/24 Rx release duloxetine 60 mg capsule,delayed 60 mg PO DAILY #90 caps 04/21/24 05/31/24 06/01/24 Rx release (Cymbalta) hydrocodone 5 mg-acetaminophen 325 1 tab PO BID PRN Pain 04/21/24 05/31/24 05/31/24 History mg tablet trazodone 50 mg tablet 150 mg (3 x 50 mg) PO .HS PRN 04/21/24 05/31/24 05/30/24 Rx insomnia #90 tabs oxycodone-acetaminophen 10 mg-325 1 tab PO Q6H PRN pain #28 tabs 06/01/24 Unknown Rx mg tablet Allergies Allergy/AdvReac Type Severity Reaction Status Date / Time Alpha-Gal Allergy ALGY-Swell Verified 05/31/24 13:26 ([id number] Lip/Tongue/Throat latex AdvReac Intermediate Blister Verified 05/10/24 14:49 NSAIDS (Non-Steroidal AdvReac Intermediate bariatric Verified 05/10/24 14:49 Anti-Inflamma surgery - advised not to take Current Medications Generic Name Dose Route Start Last Admin Trade Name Jayq PRN Reason Stop Dose Admin Sodium Chloride 1,000 mls @ 30 mls/hr 06/01/24 06:15 06/01/24 06:41 Sodium Chloride 0.9% IV 06/02/24 06:14 30 mls/hr .Q24H SUSAN Administration PFSH Anesthesia Medical History Psychiatric care Surgical History Gastric bypass status for obesity Family History Mother CAD (coronary artery disease) [place] @ 38 Cancer Family/Other CAD (coronary artery disease) Suicide Grandmother CAD (coronary artery disease) Grandmother CAD (coronary artery disease) Father Suicide Denies family history of Diabetes Clotting disorder Dementia Chronic kidney disease (CKD) Anesthesia complication Bleeding disorder Lung disease Stroke Social History Smoking and tobacco/nicotine status: unknown if used tobacco/nicotine Quit status (tobacco/nicotine): has tried quititng Number of times tried to quit tobacco: 1 Second hand smoke exposure: No Alcohol intake: former Substance/Drug Use: never Data Anesthesia Cardiac Studies: Echocardiogram 09/08/21 Sestamibi Stress Test (Cardiology) 09/09/21
--- NOTE | 2024-06-01 07:03 | PC.NURSE ---
0650: [email or web address] performed nerve block on right lower extremity using 30 ml of .5% ropivicaine
--- NOTE | 2024-06-01 07:03 | ANES.PROC ---
Anesthesia Procedures Procedure/Date: 06/01/24 Nerve Block ^: Nerve Block 1: Main Anesthesia: general anesthesia Time Out Performed: Yes Consent: requested by attending/covering physician, from patient, from other, risks and benefits reviewed and patient agrees to proceed Nerve block location: adductor canal (R) Anesthesia monitors applied: pulse oximetry, EKG, BP cuff and oxygen Nerve block position: supine Anesthetic Used: ropivicaine 0.5% (10 cc) Ultrasound used to: recognize landmarks Nerve Stimulator Used?: No Interscalene/Femoral BLK: 4 stimuplex 21 g needle used for position and inplane approach, visualize local anesthetic spread and no vascular puncture identified Injection: neg aspiration of heme Patient Tolerated Procedure: well Complications: none Nerve Block 2: Main Anesthesia: general anesthesia Time Out Performed: Yes Consent: requested by attending/covering physician, from patient, from other, risks and benefits reviewed and patient agrees to proceed Nerve block location: popliteal (r) Anesthesia monitors applied: pulse oximetry, EKG, BP cuff and oxygen Nerve block position: supine Anesthetic Used: ropivicaine 0.5% (20 cc) Ultrasound used to: recognize landmarks Nerve Stimulator Used?: No Interscalene/Femoral BLK: 4 stimuplex 21 g needle used for position and inplane approach, visualize local anesthetic spread and no vascular puncture identified Injection: neg aspiration of heme Patient Tolerated Procedure: well Complications: none
[2024-06-01] MEDS: ceFAZolin 2,000 mg SDV 2000 MG IVP (07:05)
[2024-06-01] MEDS: BUPivacaine 0.5% INJ 30 mL 20 ML INJECTION (09:55)
--- NOTE | 2024-06-01 10:41 | P.BOP_ITS ---
Date of procedure: 06/01/24 Surgeon name: Dr. Giovanni Catalan, DPM Kindergarten Instructional Assistant(s) name(s): Lorena Johnston Procedure(s) performed: Right ankle hardware removal, Right triple arthrodesis Description of findings: arthritic changes of talonavicular and subtalar joint Estimated blood loss: 20cc Tourniquet time: 140 minutes. Tourniquet was let down at 120 minutes Specimen(s) removed: hardware right ankle Post-operative diagnosis: arthritis subtalar joint right
--- NOTE | 2024-06-01 12:15 | ANE.PACU2 ---
Inpatient post-anesthesia follow up: Airway intact: Yes Vital signs: Temperature 97.2 F Pulse Rate 100 Respiratory Rate 18 Blood Pressure 102/54 Pulse Oximetry 94 Oxygen Delivery Me thod Room Air Oxygen Flow Rate Fraction of Inspir ed Oxygen Hydration adequate: Yes Nausea and vomiting: No Pain level: 1 Mental status: Baseline
--- NOTE | 2024-06-01 13:04 | P.OP_ITS ---
Operative Report Date of procedure: June 01, 2024 Surgeon: Giovanni Catalan DPM Procedure: Date of procedure: 06/01/2024 Pre-op diagnosis: #1. Painful orthopedic hardware right ankle. #2 subtalar joint arthritis right ankle Post-op diagnosis: Same Post-op findings: Khdt-[id number] subtalar joint arthritis, degenerative changes of talonavicular joint consistent with osteoarthritis Procedure done: Right foot triple arthrodesis CPT 26948. Hardware removal right ankle CPT 03330 Implants: Nitinol staple x 3 from [employer]. One 7.0 headless compression screw [employer]. Bone allograft [employer] Specimens removed: Orthopedic screw right ankle Surgeon: Dr. Giovanni Catalan DPM Layout Operator: Lorena Johnston Estimated blood loss: 20 cc Tourniquet time: 140 minutes Complications: None Patient is a 48-year-old female that has a history of severe osteoarthritis of right subtalar joint as well as painful orthopedic hardware from right ankle arthrodesis. The patient has had the aforementioned chief complaint for some t ewa. Conservative treatment measures have been attempted and the patient has opted for surgical intervention at this time. A lengthy discussion regarding the procedure, including risks and complications has been had with the patient and is noted in the recent clinic note. Written and verbal consent have been obtained. All patient questions have been answered to the patient?s satisfaction. No written or verbal guarantees have been given or implied. The patient has been NPO since midnight. The history has been reviewed and the history and physical is current. The signed consent was confirmed and placed in the patient chart. Patient imaging has been reviewed and is consistent with the diagnosis. Under mild sedation, the patient was brought into the operating room and placed on the table in the supine position. IV antibiotics were given by the anesthesia team as preoperative surgical prophylaxis. General sedation was then performed by the anesthesiateam. A popliteal nerve block was performed by the anesthesia department. A pneumatic tourniquet was then placed about the right thigh. The operative extremity was then prepped and draped in the usual fashion. The extremity was then elevated and exsanguinated before the tourniquet was inflated to 325 mmHg. After inflation, the following procedure was then performed. Attention was directed to the right ankle where palpable hardware was appreciated at the medial aspect of the right ankle proximal to the medial malleolus. #15 blade was used to make stab incision overlying this prominent screw head. Blunt dissection was carried down through subcutaneous and superficial fascia down to level of deep fascia which was retracted to expose the head of the screw. Combination of rongeur and dental pick were used to chisel away the bone that had overgrown the head of the screw. After exposing the head of the screw in its entirety a screwdriver was used to remove the screw from the foot without incident. Attention was then directed to the lateral aspect of the ankle where an 8 cm incision was made from the tip of the fibula to the base of the fourth metatarsal using a #15 blade. Dissection was carried down through subcutaneous the superficial fascia to the level of deep fascia. The extensor digitorum brevis muscle belly was visualized and reflected from the foot medially to expose the underlying sinus tarsi. Dissection was carried out to expose the subtalar joint as well as the calcaneocuboid joint. Upon exposing the subtalar joint combination of osteotome, curette and rongeur was used to remove the articular cartilage that remained at the subtalar joint. It was noted to be ziem-in-dgog with significant degenerative changes consistent with osteoarthritis. Site was irrigated with sterile saline before a drill bit was used to fenestrate the subtalar joint in preparation for arthrodesis. Attention was then directed to the calcaneocuboid joint where again, combination of rongeur, osteotome and curette was used to denude the articular surface from cartilage. The site was irrigated with sterile saline and a drill bit was used to fenestrate the calcaneocuboid joint in preparation for arthrodesis. Next, attention was directed to the dorsal medial aspect of the right foot. A sick centimeter incision was made overlying the talonavicular joint. Dissection was carried down through subcutaneous the superficial fascia to the level of the talonavicular joint. Adjacent structures such as tibialis anterior tendon and neurovascular structures were removed from the operative field. The joint capsule was incised to expose the talonavicular joint in its entirety. Again, there was noted to be degenerative changes consistent with osteoarthritis with szun-sp-egdh contact appreciated. The joint was distracted and a combination of curette, rongeur and osteotome was used to remove the remaining articular cartilage from the joint. The site was irrigated with sterile saline before and MIS bur as well as drill bit was used to fenestrate the area in preparation for arthrodesis. Bone allograft from [employer] was then packed into the arthrodesis site of the talonavicular joint as well as calcaneocuboid joint and subtalar joint. The subtalar joint was then reduced to the appropriate position and temporarily fixated with guidewire. Good positioning of the subtalar joint and calcaneus was appreciated clinically as well as on C-arm imaging. A stab incision was made over the wire used for temporary fixation of the subtalar joint. Cannulated drill system was then used to drill over the wire across the subtalar joint in preparation for the 7.0 screw. Next a 7.0 cannulated short fully threaded compression screw was inserted over the wire across the subtalar joint. Good compression of the joint was noted. Due to the existing hardware in the calcaneus and the difficulty for second screw fixation a single screw fixation was opted for at this time. Next, attention was directed to the talonavicular joint. This was reduced into the appropriate position and temporary fixated using a guidewire. Next, 2 nitinol andrews from [employer] were inserted over the talonavicular joint 1 straight dorsally and one dorsal medially. Good compression across the joint was appreciated clinically. Good positioning of the andrews was noted on C-arm imaging. Next, attention was directed to the calcaneocuboid joint where a third nitinol staple was drilled and placed over the joint for arthrodesis per the manufacture protocol. Final fluoroscopy images were obtained and all orthopedic hardware was noted to be in satisfactory alignment. The incision sites were irrigated with copious menstrual saline before attention was directed to closure. Deep tissue was closed with 3-0 Vicryl followed by subcuticular closure with 4-0 Vicryl and skin closure with 3-0 nylon in horizontal mattress fashion. The tourniquet was let down good hyperemic response was noted to all digits of the right foot. Important note that the tourniquet was let down at 120 minutes before being reinflated after a period of greater than 10 minutes. The incision sites were dressed with Xeroform, 4 x 4 gauze, Kerlix. Patient was placed in a well-padded below the knee posterior splint to the right lower extremity. The patient tolerated the procedure and anesthesia well and without complication. The patient was transported from the operating room to the recovery room with vital signs stable and vascular status intact to all digits of the right foot. The patient was given both written and verbal instructions to remain nonweightbearing to the operative extremity, to keep dressings/splint clean, dry and intact and to take pain medication as directed. The patient will follow-up in the outpatient setting at their scheduled appointment. The patient was discharged with my personal number and was instructed to call if any questions or issues should arise. They were discharged home once anesthesia criteria was met.
== END 2024-06-01 12:15 | disposition home or self-care (01) ==
PROVIDERS: PCP Electrodiagnostic Medicine; Visit Provider Podiatrist Foot & Ankle Surgery
PROC: (CPT 28740; principal; 2024-06-01 07:00)
PROC: (CPT 20680; 2024-06-01 07:00)
DX: M19.071 Primary osteoarthritis, right ankle and foot (principal); T84.84XA Pain due to internal orthopedic prosthetic devices, implants and grafts, initial encounter; Y82.8 Other medical devices associated with adverse incidents; I50.9 Heart failure, unspecified; E66.01 Morbid (severe) obesity due to excess calories; Z68.35 Body mass index [BMI] 35.0-35.9, adult; Z98.84 Bariatric surgery status
CPT/HCPCS: 20680; 28715; 73610; 76000; C1713; J0131; J0690; J1100; J1200; J2250; J2405; J2704; J2795; J3010; J3490; J7030

== ENCOUNTER → 2024-06-15 13:12 | Outpatient (BNVA) | payer OTHER, SELFPAY | PROVIDERS: PCP Electrodiagnostic Medicine; Visit Provider Podiatrist Foot & Ankle Surgery | DX: M25.571 Pain in right ankle and joints of right foot (principal); Z01.818 Encounter for other preprocedural examination; M19.071 Primary osteoarthritis, right ankle and foot | CPT/HCPCS: 73610 ==

== ENCOUNTER 2024-06-15 14:25 | Outpatient (CLI) | payer OTHER, SELFPAY | END 2024-06-15 14:26 | disposition home or self-care (01) | LOC: SPT 14:26 | PROVIDERS: PCP Electrodiagnostic Medicine; Visit Provider Podiatrist Foot & Ankle Surgery | DX: Z47.89 Encounter for other orthopedic aftercare (principal) | CPT/HCPCS: L4361 ==

== ENCOUNTER 2024-06-20 00:34 | Emergency (ER) | payer OTHER, SELFPAY ==
[2024-06-20 00:41] VITALS: BP 182/82; PULSE 97; RESP 18; TEMP 36.4; O2SAT 100; BMI 36.6
--- NOTE | 2024-06-20 01:18 | XRR_ITS ---
PROCEDURE INFORMATION: Exam: XR Right Tibia and Fibula Exam date and time: 06/20/2024 1:20 AM Age: 48 years old Clinical indication: Right; Prior surgery; Surgery date: <1 month; Surgery type: Triple arthrodesis 06/01/2024. Patient HX: C/O worsening RT lower leg pain post triple arhrodesis surgery 06/01/2024. ; Additional info: Leg pain post op TECHNIQUE: Imaging protocol: Radiologic exam of the right tibia and fibula. Views: 2 views. COMPARISON: CR XR ankle RT min 3V* [id number] 06/15/2024 1:20 PM FINDINGS: Bones/joints: Similar postsurgical changes from multifocal ORIF involving the right ankle and hindfoot with grossly intact hardware. No acute bony findings. Stable alignment. Soft tissues: Unremarkable. XR/XR tibia fibula RT 2V [id number] IMPRESSION: Status post multifocal ORIF involving the right ankle and hindfoot mental complication.
--- NOTE | 2024-06-20 01:18 | USR_ITS ---
PROCEDURE INFORMATION: Exam: US Duplex Right Lower Extremity Veins, Limited Exam date and time: 06/20/2024 3:05 AM Age: 48 years old Clinical indication: Pain; Leg, lower; Right; Prior surgery; Surgery date: <1 month; Surgery type: Ankle fusion; Additional info: Leg pain post op TECHNIQUE: Imaging protocol: Real-time duplex ultrasound of the right extremity with 2-D warren scale, color Doppler flow and spectral waveform analysis including responses to compression and other maneuvers (when performed) with image documentation. Limited exam was focused on the right lower extremity veins. COMPARISON: CT ankle RT wo con* [id number] 06/02/2023 4:53 PM FINDINGS: Right deep veins: Unremarkable. The common femoral, femoral, proximal profunda femoral and popliteal veins are patent without thrombus. Normal Doppler waveforms. Normal compressibility and/or augmentation response. Superficial veins: Greater saphenous vein at the saphenofemoral junction is patent without thrombus. Soft tissues: Unremarkable. US/[place] [id number] IMPRESSION: No evidence of deep vein thrombosis.
[2024-06-20] MEDS: ondansetron 4 MG Tablet PO (01:27)
[2024-06-20] MEDS: HYDROmorphone 1 mg/mL INJ 1 mL 2 MG IM (01:27)
--- NOTE | 2024-06-20 02:38 | ED_ITS ---
HPI - Extremity Problem General: Chief complaint: Extremity Problem,Nontraumatic Stated complaint: right leg pain post op Time Seen by Provider: 06/20/24 00:51 History of Present Illness: 48-year-old female who had arthrodesis o f her right ankle on 06/01. She did well postoperatively. For the last 2 days, she is experienced an increase in pain going from the back of her knee, down her leg, and into her foot. Pain is worst in the calf. Minimal increased swelling. No redness or drainage from the incision site. She has a tingling sensation that is new. She took pain medication at home without much improvement. Related Data Home Medications Medication Instructions Recorded Confirmed cetirizine 10 mg tablet (Zyrtec) 10 mg PO DAILY Allergy Symptoms 07/11/20 06/15/24 fexofenadine 180 mg tablet 180 mg PO DAILY PRN Allergy 07/11/20 06/15/24 Symptoms montelukast 10 mg tablet 10 mg PO QPM PRN Allergy Symptoms 07/11/20 06/15/24 acetaminophen 325 mg capsule 325 mg PO QID PRN Pain 04/14/22 06/15/24 (Tylenol) aspirin 81 mg tablet,delayed 81 mg PO DAILY 07/24/22 06/15/24 release (Adult Aspirin Regimen) hydrocodone 5 mg-acetaminophen 325 1 tab PO BID PRN Pain 04/21/24 06/15/24 mg tablet Previous Rx's Medication Instructions Recorded nitroglycerin 0.4 mg sublingual 0.4 mg sublingual Q5M PRN chest 07/09/22 tablet pain 30 days #30 tabs diltiazem HCl 120 mg 120 mg PO DAILY #90 caps 08/28/22 capsule,extended release 24 hr valsartan 160 mg tablet 160 mg PO DAILY #90 tabs 08/28/22 duloxetine 30 mg capsule,delayed 30 mg PO DAILY #90 caps 04/21/24 release duloxetine 60 mg capsule,delayed 60 mg PO DAILY #90 caps 04/21/24 release (Cymbalta) trazodone 50 mg tablet 150 mg (3 x 50 mg) PO .HS PRN 04/21/24 insomnia #90 tabs cyclobenzaprine 10 mg tablet 10 mg PO Q8H #21 tabs 06/01/24 oxycodone-acetaminophen 10 mg-325 1 tab PO Q6H PRN pain #28 tabs 06/01/24 mg tablet fluconazole 150 mg tablet 150 mg PO DAILY #1 tab 06/06/24 Cam Boot #1 ea 06/15/24 oxycodone-acetaminophen 10 mg-325 1 tab PO Q6H PRN post op pain 3 06/15/24 mg tablet days #12 tabs gabapentin 300 mg capsule 300 mg PO Q8H #30 caps 06/20/24 oxycodone-acetaminophen 10 mg-325 1 tab PO Q6H PRN pain 7 days #10 06/20/24 mg tablet tabs Allergies Allergy/AdvReac Type Severity Reaction Status Date / Time Alpha-Gal Allergy ALGY-Swell Verified 06/20/24 00:44 (Bcscnxeby-Usbbt-1,3-Gala Lip/Tongue/Throat latex AdvReac Intermediate Blister Verified 06/20/24 00:44 NSAIDS (Non-Steroidal AdvReac Intermediate bariatric Verified 06/20/24 00:44 Anti-Inflamma surgery - advised not to take PFSH ED PFSH: Medical History Psychiatric care Surgical History Gastric bypass status for obesity Family History Mother CAD (coronary artery disease) [place] @ 38 Cancer Family/Other CAD (coronary artery disease) Suicide Grandmother CAD (coronary artery disease) Grandmother CAD (coronary artery disease) Father Suicide Denies family history of Diabetes Clotting disorder Dementia Chronic kidney disease (CKD) Anesthesia complication Bleeding disorder Lung disease Stroke Social History Smoking and tobacco/nicotine status: unknown if used tobacco/nicotine Quit status (tobacco/nicotine): has tried quititng Number of times tried to quit tobacco: 1 Second hand smoke exposure: No Alcohol intake: former Substance/Drug Use: never Physical Exam Const: COMMON NORMALS: no acute distress GENERAL APPEARANCE: cooperative; not ill appearing and not frail appearing HENMT: COMMON NORMALS: normocephalic, atraumatic and Normal external nose present HEAD & SCALP: normocephalic and atraumatic FACE & SINUS: normal facial exam and face symmetric NOSE: Normal external nose present Eye: COMMON NORMALS: Equal, round and reactive pupils present and EOMs intact bilaterally PUPIL: Yes Equal, round and reactive pupils present Neck/C-Spine: GENERAL: Yes trachea midline Chest: CHEST: Yes Symmetrical chest wall rise Resp: COMMON NORMALS: normal respiratory effort, No retractions and No use of accessory muscles Cardio: COMMON NORMALS: regular rate and regular rhythm RATE: regular rate RHYTHM: regular rhythm Extremity: COMMON NORMALS: no pedal edema NARRATIVE EXTREMITY EXAM: Exam the right lower extremity reveals healed incisions. There is no redness, no streaking, no significant swelling. There is some tenderness to the calf and the popliteal fossa. Minimal to no tenderness otherwise. Neuro: ARNAV COMA SCALE: document GCS findings [place] coma scale eye opening: Spontaneous Arnav coma scale verbal response: Orientated Arnav coma scale motor response: Obey commands [place] coma scale total score: 15 SENSORY EXAM: Yes extremities (intact) Psych: COMMON NORMALS: speech normal SPEECH: Yes normal speech Skin: COMMON NORMALS: no rashes or lesions noted GENERAL SKIN EXAM: no rashes or lesions noted Course Vital Signs: Vital signs: Vital Signs Temperature 97.6 F 06/20/24 00:41 Pulse Rate 87 06/20/24 03:42 Respiratory Rate 18 06/20/24 00:41 Blood Pressure 134/88 06/20/24 03:42 Pulse Oximetry 100 06/20/24 03:42 Oxygen Delivery Me thod Room Air 06/20/24 00:41 MDM - Extremity (Nontraumatic) Medical Decision Making X-rays reveal no complication of hardware. Her incision looks excellent. Ultrasound of the leg for DVT is pending. She is given an injection for pain with some relief. DVT ultrasound is negative. She will be allowed discharge. There is no evidence or sign of infection. Lab Data Radiology Impressions Tibia/Fibula X-Ray 06/20/24 01:18 IMPRESSION: Status post multifocal ORIF involving the right ankle and hindfoot mental complication. All radiology interpretation(s) finalized by discharge Discharge Plan Discharge Patient Disposition: Home Clinical Impression: Arthritis of right subtalar joint, Acute leg pain Condition: Stable Prescriptions: New gabapentin 300 mg capsule 300 mg PO Q8H Qty: 30 0RF Continued oxycodone-acetaminophen 10-325 mg tablet 1 tab PO Q6H PRN (Reason: pain) 7 Days Qty: 10 0RF Rx Instructions: Take one half tablet by mouth every 6 hours No Action hydrocodone-acetaminophen 5-325 mg tablet 1 tab PO BID PRN (Reason: Pain) duloxetine 30 mg capsule,delayed release(DR/EC) 30 mg PO DAILY Qty: 90 1RF Rx Instructions: Take with 60 mg for total of 90 mg daily duloxetine [Cymbalta] 60 mg capsule,delayed release(DR/EC) 60 mg PO DAILY Qty: 90 1RF trazodone 50 mg tablet 150 mg PO .HS PRN (Reason: insomnia) Qty: 90 2RF aspirin [Adult Aspirin Regimen] 81 mg tablet,delayed release (DR/EC) 81 mg PO DAILY nitroglycerin 0.4 mg tablet, sublingual 0.4 mg sublingual Q5M PRN (Reason: chest pain) 30 Days Qty: 30 3RF Rx Instructions: until response; do not exceed 3 doses per episode (DME) Cam Boot See Rx Instructions .Route .MEDSUPPLY Qty: 1 0RF Rx Instructions: dx Z98.1 oxycodone-acetaminophen 10-325 mg tablet 1 tab PO Q6H PRN (Reason: post op pain) 3 Days Qty: 12 0RF diltiazem HCl 120 mg capsule,extended release 24hr 120 mg PO DAILY Qty: 90 3RF valsartan 160 mg tablet 160 mg PO DAILY Qty: 90 1RF fluconazole 150 mg tablet 150 mg PO DAILY Qty: 1 0RF cetirizine [Zyrtec] 10 mg Tablet 10 mg PO DAILY fexofenadine 180 mg Tablet 180 mg PO DAILY PRN (Reason: Allergy Symptoms) montelukast 10 mg tablet 10 mg PO QPM PRN (Reason: Allergy Symptoms) acetaminophen [Tylenol] 325 mg Capsule 325 mg PO QID PRN (Reason: Pain) oxycodone-acetaminophen 10-325 mg tablet 1 tab PO Q6H PRN (Reason: pain) Qty: 28 0RF cyclobenzaprine 10 mg tablet 10 mg PO Q8H Qty: 21 0RF Discharge Orders: Discharge ED (Routine); Ordered 06/20/24 Ordered By: Enoch Terry Referrals: Ochoa Toro DO [Primary Care Provider] - Giovanni Catalan DPM [Physician] - 1-3 days Patient Instructions: Leg Pain (ED), Opioid Safety, Pain Management Activity Restrictions/Additional Instructions: Medication as directed. Take gabapentin as scheduled. It may help with nerve related pain. Ice may help as well. Elevate today. Call your surgeon later this morning, and let them know you were seen here with increasing pain. Coding Level of Care Code ED Billing Machine Operator for Wilian Young
[2024-06-20 03:42] VITALS: BP 134/88; PULSE 87; O2SAT 100
[2024-06-20] MEDS: ketorolac 30 mg/mL INJ IM (03:51)
[2024-06-20] MEDS: dexamethasone 10 mg/mL INJ 8 MG PO (03:51)
[2024-06-20] MEDS: oxyCODONE-APAP 5-325 mg Tablet 2 TAB PO (03:52)
== END 2024-06-20 03:43 | disposition home or self-care (01) ==
PROVIDERS: Emergency Provider Emergency Medicine; PCP Electrodiagnostic Medicine
DX: M13.871 Other specified arthritis, right ankle and foot (principal); M79.604 Pain in right leg
CPT/HCPCS: 73590; 93971; 96372; 99284; J1100; J1171; J1885; Q0162

== ENCOUNTER → 2024-07-13 11:39 | Outpatient (BNVA) | payer OTHER, SELFPAY | PROVIDERS: PCP Electrodiagnostic Medicine; Visit Provider Podiatrist Foot & Ankle Surgery | DX: M79.671 Pain in right foot (principal); Z98.890 Other specified postprocedural states; Z01.818 Encounter for other preprocedural examination; M19.071 Primary osteoarthritis, right ankle and foot | CPT/HCPCS: 73630 ==

== ENCOUNTER → 2024-08-01 13:03 | Outpatient (BNVA) | payer OTHER, SELFPAY | PROVIDERS: PCP Electrodiagnostic Medicine; Visit Provider Podiatrist Foot & Ankle Surgery | DX: M79.671 Pain in right foot (principal); Z98.890 Other specified postprocedural states | CPT/HCPCS: 73630 ==

== ENCOUNTER → 2024-09-08 15:14 | Outpatient (BNVA) | payer OTHER, SELFPAY | PROVIDERS: PCP Electrodiagnostic Medicine; Visit Provider Student in an Organized Health Care Education/Training Program | DX: M17.11 Unilateral primary osteoarthritis, right knee; M94.261 Chondromalacia, right knee; M06.4 Inflammatory polyarthropathy; T84.033A Mechanical loosening of internal left knee prosthetic joint, initial encounter; T84.84XA Pain due to internal orthopedic prosthetic devices, implants and grafts, initial encounter; Z96.652 Presence of left artificial knee joint; X58.XXXA Exposure to other specified factors, initial encounter; Y79.2 Prosthetic and other implants, materials and accessory orthopedic devices associated with adverse incidents; M25.562 Pain in left knee | CPT/HCPCS: 36415; 73560; 73565; 85025; 85651; 86140 ==

== ENCOUNTER 2024-09-21 07:47 | Outpatient (CLI) | payer OTHER, SELFPAY ==
--- NOTE | 2024-09-21 08:00 | NM_ITS ---
WS: [id number] THREE-PHASE BONE SCAN HISTORY: Loose implant, LEFT knee prosthesis 2018. COMPARISON: Radiograph 09/08/2024 and 07/11/2020 Patient is is injected with 26.0 mCi Tc99m HDP intravenously. Immediate angiographic phase imaging is performed over the area of concern. Static blood pool imaging also performed. Two-hour whole-body sc intigrams performed in anterior and posterior projections. Additional large field of view imaging sub mitted as necessary. Angiographic and blood pool imaging centered over the knees. There is no increased uptake involving e ither knee. There is a photopenic defect involving the LEFT knee at the site of the prosthetic device . No hyperemia or cellulitis. On the bone phase there is mild activity uptake along the LEFT tibial plateau and involving the finn la. Additional increased uptake to a slightly lesser extent involving the RIGHT patella. Marked increased uptake at the RIGHT ankle, patient had recent surgery and fusion at the RIGHT ankle. Mild osteoarthritis at the LEFT ankle and midfoot. Normal soft tissue uptake. Normal renal uptake. NM/NM bone 3 phase [id number] IMPRESSION: 1. There is moderate increased uptake involving the LEFT knee along the tibial plateau surface and patella. Slightly greater fragmentation is noted on the re cent radiograph involving the superior patella than on the prior radiograph fro m 07/11/2020. This may indicate small new fractures from the patella. Blood poo l phase is often but not always positive with loosening. Loosening of the prost hesis along the tibial plateau should be considered due to the moderate uptake. 2. Focal increased uptake in the RIGHT patella. May be from recent trauma or a rthritis.
== END 2024-09-21 07:48 | disposition home or self-care (01) ==
LOC: RAD 07:47
PROVIDERS: PCP Electrodiagnostic Medicine; Visit Provider Student in an Organized Health Care Education/Training Program
DX: T84.039A Mechanical loosening of unspecified internal prosthetic joint, initial encounter (principal); X58.XXXA Exposure to other specified factors, initial encounter; R93.6 Abnormal findings on diagnostic imaging of limbs; M19.072 Primary osteoarthritis, left ankle and foot
CPT/HCPCS: 78315; A9561

== ENCOUNTER → 2024-09-23 12:25 | Outpatient (BNVA) | payer OTHER, SELFPAY | PROVIDERS: PCP Electrodiagnostic Medicine; Referring Provider Electrodiagnostic Medicine; Visit Provider Obstetrics & Gynecology | DX: Z12.4 Encounter for screening for malignant neoplasm of cervix (principal) | CPT/HCPCS: 87624 ==

== ENCOUNTER → 2024-11-03 08:10 | Outpatient (BNVA) | payer OTHER, SELFPAY | PROVIDERS: PCP Electrodiagnostic Medicine; Visit Provider Obstetrics & Gynecology | DX: R10.2 Pelvic and perineal pain (principal); Z90.711 Acquired absence of uterus with remaining cervical stump; N88.8 Other specified noninflammatory disorders of cervix uteri | CPT/HCPCS: 76830 ==

== ENCOUNTER 2025-02-15 09:20 | Outpatient (CLI) | payer OTHER, SELFPAY ==
--- NOTE | 2025-02-15 09:30 | USR_ITS ---
PROCEDURE INFORMATION: Exam: US Duplex Lower Extremity Veins, Bilateral Exam date and time: 02/15/2025 9:40 AM Age: 49 years old Clinical indication: Pain; Leg, lower; Bilateral; Additional info: Bilat leg pain TECHNIQUE: Imaging protocol: Real-time duplex ultrasound of the bilateral extremities with 2-D warren scale, color Doppler flow and spectral waveform analysis including responses to compression and other maneuvers (when performed) with image documentation. Complete exam focused on the lower extremity veins. COMPARISON: No relevant prior studies available. FINDINGS: Right deep veins: Unremarkable. The common femoral, femoral, proximal profunda femoral and popliteal veins are patent without thrombus. Normal Doppler waveforms. Normal compressibility and/or augmentation response. Left deep veins: Unremarkable. The common femoral, femoral, proximal profunda femoral and popliteal veins are patent without thrombus. Normal Doppler waveforms. Normal compressibility and/or augmentation response. Superficial veins: Greater saphenous veins at the saphenofemoral junctions are patent bilaterally without thrombus. Soft tissues: Unremarkable. [facility] [id number] IMPRESSION: No evidence of deep vein thrombosis.
== END 2025-02-15 09:21 | disposition home or self-care (01) ==
LOC: RAD 09:23
PROVIDERS: PCP Electrodiagnostic Medicine; Visit Provider Internal Medicine Cardiovascular Disease
DX: M79.604 Pain in right leg (principal); M79.605 Pain in left leg
CPT/HCPCS: 93970

== ENCOUNTER 2025-02-28 17:03 | Outpatient (CLI) | payer OTHER, SELFPAY | END 2025-02-28 17:04 | disposition home or self-care (01) | LOC: SLEEP 17:05 | PROVIDERS: PCP Electrodiagnostic Medicine; Referring Provider Electrodiagnostic Medicine; Visit Provider Internal Medicine Pulmonary Disease | DX: G47.10 Hypersomnia, unspecified (principal) | CPT/HCPCS: G0399 ==

== ENCOUNTER 2025-05-11 08:44 | Outpatient (CLI) | payer OTHER, SELFPAY ==
[2025-05-11 09:41] LABS: Hematocrit 38.6 % (36-47); Hemoglobin 12.30 g/dL (11.27-16.99); Mean Corpuscular HGB Conc 31.9 g/dL (30-55); Mean Corpuscular Hemoglobin 29.7 pg (27-33); Mean Corpuscular Volume 93.2 fl (85-98); Nucleated Red Blood Cells % 0 %; Platelet Count 449 10^3/cmm (157-399); Red Blood Count 4.14 10^6/uL (3.85-5.65); White Blood Count 5.84 10^3/uL (3.29-11.43)
[2025-05-11 10:14] LABS: Anion Gap 17.8 (5-19); Blood Urea Nitrogen 17 mg/dL (6-20); Calcium 9.4 mg/dL (8.5-10.5); Carbon Dioxide 23 mmol/L (22-29); Chloride 107 mmol/L (98-107); Glucose 125 mg/dL (65-115); NT Pro B Type Natriuretic Pept 104 pg/mL (0-125); Osmolality Calculated 301 mOsm/kg (285-295); Potassium 3.8 mmol/L (3.5-5.1); Sodium 144 mmol/L (136-145)
== END 2025-05-11 08:45 | disposition home or self-care (01) ==
LOC: LAB 08:45
PROVIDERS: PCP Electrodiagnostic Medicine; Visit Provider Nurse Practitioner Family
DX: I83.93 Asymptomatic varicose veins of bilateral lower extremities (principal)
CPT/HCPCS: 36415; 80048; 83880; 85025

== ENCOUNTER → 2025-07-13 08:33 | Outpatient (BNVA) | payer OTHER, SELFPAY | PROVIDERS: PCP Electrodiagnostic Medicine; Visit Provider Podiatrist Foot & Ankle Surgery | DX: M79.671 Pain in right foot (principal); S92.911A Unspecified fracture of right toe(s), initial encounter for closed fracture; X58.XXXA Exposure to other specified factors, initial encounter | CPT/HCPCS: 73630 ==

== ENCOUNTER 2025-07-26 09:33 | Outpatient (CLI) | payer OTHER, SELFPAY ==
--- NOTE | 2025-07-26 10:00 | CTR_ITS ---
PROCEDURE INFORMATION: Exam: CT Right Lower Extremity Without Contrast, Foot Exam date and time: 07/26/2025 10:15 AM Age: 49 years old Clinical indication: Pain; Prior surgery; Surgery date: 6+ months; Surgery type: Right foot x 2; Right foot follow up, toe FX; Additional info: Toe fracture, right foot TECHNIQUE: Imaging protocol: CT of the right lower extremity without contrast was performed. Exam focused on the foot. Radiation optimization: All CT scans at this facility use at least one of these dose optimization techniques: automated exposure control; mA and/or kV adjustment per patient size (includes targeted exams where dose is matched to clinical indication); or iterative reconstruction. COMPARISON: CR XR foot RT min 3V* [id number] 07/13/2025 8:41 AM RADIATION DOSE METRICS: Total DLP (mGy-cm): 121.89 FINDINGS: Bones/joints: The bones appear demineralized. No acute fracture is identified. Osseous fusion between the distal tibia and talus, in between the distal fibula and the tibia and talus is identified, and small regions of osseous fusion of the posterior subtalar joint appears to be present involving less than 50% of the articular surface. There are fixation screws traversing the distal fibula, calcaneus, tibiotalar joint, and posterior talus. A surgical staple extends from the anterior calcaneus to the cuboid and is similarly fractured at its posterior aspect. Two andrews traversing the talonavicular joint appear intact. Moderate posterior calcaneal enthesophyte formation is present. There is severe posterior subtalar joint and talonavicular space narrowing with moderate osteophyte formation. Small well corticated ossified bodies likely related to an old ununited fracture is noted in the region of the tip of the anterior calcaneal process. Mild osteophyte formation of the 1st metatarsophalangeal joint is present. Soft tissues: Mild subcutaneous fat stranding along the medial and lateral aspect of the ankle is noted without a discrete fluid collection. There are extensive regions of abductor digiti minimi muscle atrophy. CT/CT foot RT wo con* [id number] IMPRESSION: 1. No acute osseous findings. 2. Postoperative changes are present with similar fracturing of a calcaneocuboid fixation staple. 3. Multifocal regions of primary osteoarthritis. 4. 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
== END 2025-07-26 09:34 | disposition home or self-care (01) ==
LOC: RAD 09:34
PROVIDERS: PCP Electrodiagnostic Medicine; Visit Provider Podiatrist Foot & Ankle Surgery
DX: S92.911A Unspecified fracture of right toe(s), initial encounter for closed fracture (principal); X58.XXXA Exposure to other specified factors, initial encounter
CPT/HCPCS: 73700

== ENCOUNTER → 2025-08-03 07:30 | Outpatient (BNVA) | payer OTHER, SELFPAY | PROVIDERS: PCP Electrodiagnostic Medicine; Visit Provider Podiatrist Foot & Ankle Surgery | DX: M20.41 Other hammer toe(s) (acquired), right foot (principal); M20.42 Other hammer toe(s) (acquired), left foot; S92.911A Unspecified fracture of right toe(s), initial encounter for closed fracture; X58.XXXA Exposure to other specified factors, initial encounter | CPT/HCPCS: 73630 ==

== ENCOUNTER 2025-08-14 09:02 | Outpatient (CLI) | payer OTHER, SELFPAY ==
[2025-08-14 10:05] LABS: Anion Gap 13.8 (5-19); Blood Urea Nitrogen 23 mg/dL (6-20); Calcium 9.4 mg/dL (8.5-10.5); Carbon Dioxide 26 mmol/L (22-29); Chloride 102 mmol/L (98-107); Glucose 82 mg/dL (65-115); Osmolality Calculated 289 mOsm/kg (285-295); Potassium 3.8 mmol/L (3.5-5.1); Sodium 138 mmol/L (136-145)
== END 2025-08-14 09:03 | disposition home or self-care (01) ==
PROVIDERS: PCP Electrodiagnostic Medicine; Visit Provider Internal Medicine Cardiovascular Disease
DX: I10 Essential (primary) hypertension (principal); E78.5 Hyperlipidemia, unspecified
CPT/HCPCS: 36415; 80048